=== PATIENT | male | born 1950 | race Caucasian/White ===

== ENCOUNTER 2021-08-24 22:47 | Inpatient (IN) | payer OTHER, MEDICARE ==
[2021-08-24] MEDS: LORazepam 2 MG/ML INJ IV STA ×2 (23:07→23:17)
[2021-08-24] MEDS ORDERED: LORazepam 2 MG/ML INJ IV STA ×2 (23:07→23:17)
[2021-08-24] MEDS ORDERED: MORPHINE SULFATE 4 MG/ML SYRINGE IV STA ×2 (23:09→23:17)
[2021-08-24] MEDS ORDERED: SUCCINYLCHOLINE CHLORIDE VIAL 200 MG/10 ML VIAL IV ONE (23:15)
[2021-08-24] MEDS ORDERED: ETOMIDATE 2 MG/ML 10 ML VIAL ONE (23:15)
[2021-08-24 23:26] LABS: Glucose,Whole Blood 104 mg/dL (75-99)
[2021-08-24] MEDS ORDERED: NITROGLYCERIN SL TABS 0.4 MG TAB SUBLINGUAL PRN (23:28)
[2021-08-24] MEDS ORDERED: HEPARIN SODIUM 1,000 UN/ML (10ML VL) IV PRN (23:29)
[2021-08-24] MEDS ORDERED: ASPIRIN 300 MG SUPP RECTAL STA (23:29)
[2021-08-24] MEDS ORDERED: HEPARIN SOD,PORK IN 0.45% NACL 25,000 UNIT in 0.45% NACL 1 250ML.BAG IV SCH (23:30)
[2021-08-24 23:49] LABS: Albumin 4.2 g/dL (3.5-5.0); Calcium 8.8 mg/dL (8.4-10.2); Potassium 3.4 mmol/L (3.5-5.1); Total Bilirubin 0.7 mg/dL (0.2-1.3); Total Protein 6.7 g/dL (6.3-8.2)
[2021-08-24 23:54] LABS: HCT 46.9 % (39.0-53.0); HGB 15.2 gm/dL (13.0-17.5); MCH 27.7 pg (25.0-35.0); MCHC 32.3 g/dL (31.0-37.0); MCV 85.6 fL (80.0-100.0); Mean Platelet Volume 7.9; Platelet Count 203 k/uL (150-450); RBC 5.48 m/uL (4.30-5.90); RDW 13.2 % (11.5-15.5); WBC 11.6 k/uL (3.8-10.6)
[2021-08-24] MEDS ORDERED: IV FLUID CONTINUATION 1,000 ML IV ONE ×2 (23:55)
[2021-08-24] MEDS ORDERED: LIDOCAINE 1% INJ 10MG/ML (20 ML MDV) SQ ONE (23:55)
[2021-08-25] MEDS ORDERED: NOREPINEPHRINE 4 MG in SODIUM CHLORIDE 0.9% 250 ML IV ONE ×2
--- NOTE | 2021-08-25 00:03 | XR ---
EXAMINATION TYPE: XR chest 1V DATE OF EXAM: 08/24/2021 COMPARISON: Today HISTORY: Tube placement TECHNIQUE: Single view FINDINGS: Heart and mediastinum are normal. Lungs are clear of infiltrate. There is endotracheal tube 4 cm from the matthew. There is nasogastric tube in the stomach. Lungs are clear of consolidation. Th ere is no heart failure. There are no hilar masses. There are chest leads. IMPRESSION: No active cardiopulmonary disease. No change.
--- NOTE | 2021-08-25 00:04 | XR ---
EXAMINATION TYPE: XR chest 1V confirm line [facility] DATE OF EXAM: 08/24/2021 COMPARISON: Today HISTORY: Tube placement TECHNIQUE: FINDINGS: There is oral gastric tube looped in the gastric fundus. The lungs are clear of infiltrate. There is no heart failure. Endotracheal tube is 4.5 cm from the matthew. There are chest leads. IMPRESSION: No active cardiopulmonary disease. No change.
[2021-08-25] MEDS ORDERED: TIROFIBAN BOLUS 12.5MG/250 ML BAG IV ONE ×2 (00:25)
[2021-08-25] MEDS: HEPARIN SODIUM 1,000 UN/ML (10ML VL) IV ONE ×4 (00:25→00:48)
[2021-08-25] MEDS ORDERED: TIROFIBAN 12.5MG-250ML NS 250 ML IV ONE (00:35)
[2021-08-25 00:47] LABS: INR 0.9 (<1.2); Partial Thromboplastin Time 18.5 sec (22.0-30.0); Prothrombin Time 10.1 sec (9.0-12.0)
[2021-08-25] MEDS ORDERED: TICAGRELOR 90 MG TAB ONE (00:52)
[2021-08-25 00:55] LABS: Band Neutrophils % 1 %; Eosinophils # (M) 0.23 k/uL (0-0.7); Monocytes # (M) 0.93 k/uL (0-1.0); Neutrophils % (M) 33 %; Nucleated Red Blood Cells 0 /100 WBC (0-0); Total Cells Counted 100
[2021-08-25] MEDS ORDERED: IOPAMIDOL-370 100ML BTL INJ ONE ×2 (01:07→01:08)
[2021-08-25] MEDS ORDERED: TICAGRELOR 90 MG TAB PO ONE (01:08)
[2021-08-25] MEDS ORDERED: IOPAMIDOL-370 50ML BTL INJ ONE (01:08)
[2021-08-25] MEDS: LORazepam 2 MG/ML INJ IV STA ×2 (01:32)
[2021-08-25 01:34] LABS: Glucose,Whole Blood 117 mg/dL (75-99)
--- NOTE | 2021-08-25 01:37 | ED ---
SOB HPI - General Chief Complaint: Shortness of Breath Stated Complaint: Shortness of Breath Time Seen by Provider: 08/24/21 23:11 Source: patient Mode of arrival: wheelchair Limitations: no limitations, altered mental status - History of Present Illness Initial Comments: this patient is a 71-year-old man who presents to be evaluated for left arm discomfort and shortness of breath. I am taking most of the history from the patient's , as the patient became unresponsive shortly after arrival here and I was not able to obtain any information from him. [facility] He is being treated for h ypothyroidism. 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 This evening he began experiencing some left arm discomfort, and he told his that something was wrong and had they drove to the hospital. When he arrived in triage she also apparently was able to report he was feeling short of breath. He then became unresponsive while giving the triage history. The patient was brought directly to room 7 and I was summoned to the bedside. MD Complaint: shortness of breath -: unknown Radiation: left arm Associated Symptoms: diaphoresis - Related Data Home Medications Medication Instructions Recorded Confirmed Atorvastatin [Lipitor] 10 mg PO DAILY 08/25/21 08/25/21 Levothyroxine Sodium [Synthroid] 75 mcg PO DAILY 08/25/21 08/25/21 Previous Rx's Medication Instructions Recorded Ticagrelor [Brilinta] 90 mg PO BID 30 Days #60 tab 08/26/21 Allergies Allergy/AdvReac Type Severity Reaction Status Date / Time No Known Allergies Allergy Verified 08/24/21 23:39 Review of Systems ROS Statement: Those systems with pertinent positive or pertinent negative responses have been documented in the HPI. ROS Other: All systems not noted in ROS Statement are negative. Limitations: ROS unobtainable due to patients medical condition Respiratory: Reports: dyspnea Past Medical History Past Medical History: Unable to Obtain History of Any Multi-Drug Resistant Organisms: None Reported Past Surgical History: Unable to Obtain Past Psychological History: No Psychological Hx Reported Smoking Status: Unknown if ever smoked Past Alcohol Use History: Unable to Obtain Past Drug Use History: Unable to Obtain General Exam Limitations: no limitations General appearance: obtunded Head exam: Present: atraumatic, normocephalic Eye exam: Present: normal appearance, PERRL, EOMI. Absent: scleral icterus, conjunctival injection ENT exam: Present: normal oropharynx Neck exam: Present: normal inspection. Absent: tenderness Respiratory exam: Present: rhonchi, other (no spontaneous inspiratory effort. Auscultation with bagging reveals a few scattered rhonchi) Cardiovascular Exam: Present: other (no cardiac sounds. No palpable PMI or any pulses) GI/Abdominal exam: Present: soft. Absent: distended, tenderness, guarding exam: Present: normal inspection Extremities exam: Present: normal inspection. Absent: tenderness, normal capillary refill, pedal edema Back exam: Present: normal inspection. Absent: vertebral tenderness Expanded Eye Response: (1) no response Motor Response: (1) no motor response Verbal Response: (1) no verbal response Skin exam: Present: intact, diaphoretic, mottled. Absent: rash Course Vital Signs 08/24/21 08/24/21 08/24/21 22:52 23:12 23:18 Temperature 97.3 F L Pulse Rate 66 109 H 104 H Respiratory 16 14 18 Rate Blood Pressure 190/102 144/102 141/100 O2 Sat by Pulse 99 98 Oximetry 08/24/21 08/24/21 08/24/21 23:24 23:27 23:30 Temperature Pulse Rate 81 78 76 Respiratory 14 14 14 Rate Blood Pressure 95/70 84/66 79/61 O2 Sat by Pulse 98 98 Oximetry Procedures - [place] Protocol (Time Out) Patient Identification (2 identifiers required): Verbal, Arm Band, Name, Birthdate Patient/Legal Gas Generator Operator has Confirmed: Identity, Procedure, Consent Site Marked: Not Applicable - Intubation Sedative: Etomidate Mg Given: 20 Paralytic: Succinylcholine Mg Given: 100 Laryngoscope: Adina Size: 3 ET Tube Size: 8 ET Tube Uncuffed: No Tube Secured Depth (cm): 23 Tube Secured Location: lips Tube Placement Confirmation: visualized tube passing through cords, equal breath sounds bilaterally, no breath sounds over epigastrium, confirmation by capnometry Patient Tolerated Procedure: well Intubation Complications: none Medical Decision Making - Medical Decision Making patient is a 71-year-old man became unresponsive in the triage area and when placed on monitor worker which showed ventricular fibrillation. ACLS protocol started. Chest compressions and bagging performed well defibrillation pads are placed and shock is delivered. Patient remained in V. fib and second shock is administered. The patient had organized complexes, the rate is bradycardic. There are palpable pulses. IV is started, fluids started. The patient did deteriorate into the V. fib, CPR started, epinephrine given, shock is delivered, and resulted in return of organized Rhythm. patient is intubated for airway protection. ECG is obtained which meets STEMI criteria and Forming Machine Tender was activated, I discussed with the subway train driver on-call Dr. Lynn. The patient did start to regain consciousness and is given sedation. - Lab Data Result diagrams: 08/26/21 03:18 08/26/21 03:18 Lab Results 08/24/21 08/24/21 08/24/21 Range/Units 23:06 23:14 23:14 WBC 11.6 H (3.8-10.6) k/uL RBC 5.48 (4.30-5.90) m/uL Hgb 15.2 (13.0-17.5) gm/dL Hct 46.9 (39.0-53.0) % MCV 85.6 (80.0-100.0) fL MCH 27.7 (25.0-35.0) pg MCHC 32.3 (31.0-37.0) g/dL RDW 13.2 (11.5-15.5) % Plt Count 203 (150-450) k/uL MPV 7.9 Neutrophils % (Manual) 33 % Band Neuts % (Manual) 1 % Lymphocytes % (Manual) 56 % Monocytes % (Manual) 8 % Eosinophils % (Manual) 2 % Neutrophils # (Manual) 3.90 (1.3-7.7) k/uL Lymphocytes # (Manual) 6.50 H (1.0-4.8) k/uL Monocytes # (Manual) 0.93 (0-1.0) k/uL Eosinophils # (Manual) 0.23 (0-0.7) k/uL Nucleated RBCs 0 (0-0) /100 WBC Manual Slide Review Performed PT 10.1 (9.0-12.0) sec INR 0.9 (<1.2) APTT 18.5 L (22.0-30.0) sec Sodium (137-145) mmol/L Potassium (3.5-5.1) mmol/L Chloride (98-107) mmol/L Carbon Dioxide (22-30) mmol/L Anion Gap mmol/L BUN (9-20) mg/dL Creatinine (0.66-1.25) mg/dL Est GFR (CKD-EPI)AfAm (>60 ml/min/1.73 sqM) Est GFR (CKD-EPI)NonAf (>60 ml/min/1.73 sqM) Glucose (74-99) mg/dL POC Glucose (mg/dL) 104 H (75-99) mg/dL POC Glu Form Maker Plaster ID Bradley Marrero Calcium (8.4-10.2) mg/dL Total Bilirubin (0.2-1.3) mg/dL AST (17-59) U/L ALT (4-49) U/L Alkaline Phosphatase (38-126) U/L Troponin I (0.000-0.034) ng/mL Total Protein (6.3-8.2) g/dL Albumin (3.5-5.0) g/dL 08/24/21 08/24/21 Range/Units 23:14 23:14 WBC (3.8-10.6) k/uL RBC (4.30-5.90) m/uL Hgb (13.0-17.5) gm/dL Hct (39.0-53.0) % MCV (80.0-100.0) fL MCH (25.0-35.0) pg MCHC (31.0-37.0) g/dL RDW (11.5-15.5) % Plt Count (150-450) k/uL MPV Neutrophils % (Manual) % Band Neuts % (Manual) % Lymphocytes % (Manual) % Monocytes % (Manual) % Eosinophils % (Manual) % Neutrophils # (Manual) (1.3-7.7) k/uL Lymphocytes # (Manual) (1.0-4.8) k/uL Monocytes # (Manual) (0-1.0) k/uL Eosinophils # (Manual) (0-0.7) k/uL Nucleated RBCs (0-0) /100 WBC Manual Slide Review PT (9.0-12.0) sec INR (<1.2) APTT (22.0-30.0) sec Sodium 141 (137-145) mmol/L Potassium 3.4 L (3.5-5.1) mmol/L Chloride 104 (98-107) mmol/L Carbon Dioxide 22 (22-30) mmol/L Anion Gap 15 mmol/L BUN 16 (9-20) mg/dL Creatinine 1.08 (0.66-1.25) mg/dL Est GFR (CKD-EPI)AfAm 81 (>60 ml/min/1.73 sqM) Est GFR (CKD-EPI)NonAf 70 (>60 ml/min/1.73 sqM) Glucose 172 H (74-99) mg/dL POC Glucose (mg/dL) (75-99) mg/dL POC Glu Form Maker Plaster ID Calcium 8.8 (8.4-10.2) mg/dL Total Bilirubin 0.7 (0.2-1.3) mg/dL AST 47 (17-59) U/L ALT 33 (4-49) U/L Alkaline Phosphatase 86 (38-126) U/L Troponin I 0.024 (0.000-0.034) ng/mL Total Protein 6.7 (6.3-8.2) g/dL Albumin 4.2 (3.5-5.0) g/dL Critical Care Time Critical Care Time: Yes (35 minutes) Disposition Clinical Impression: Acute myocardial infarction, STEMI (ST elevation myocardial infarction), Ventricular fibrillation Disposition: ADMITTED IP TO THIS HOSP Condition: Critical
[2021-08-25 01:59] LABS: ABG Base Excess -0.1 mmol/L; ABG HCO3 25 mmol/L (21-25); ABG Oxygen Saturation 99.8 % (94-97); ABG PCO2 46 mmHg (35-45); ABG PH 7.35 (7.35-7.45); ABG PO2 276 mmHg (83-108); ABG TCO2 27 mmol/L (19-24); Allen Test Performed? Yes
[2021-08-25] MEDS ORDERED: POTASSIUM CHLORIDE 20 MEQ in WATER FOR INJECTION 1 100ML.BAG IVPB SCH (03:00)
[2021-08-25] MEDS: NOREPINEPHRINE 4 MG in SODIUM CHLORIDE 0.9% 250 ML IV SCH ×2 (03:00→15:42)
[2021-08-25] MEDS: POTASSIUM CHLORIDE 10 MEQ in WATER FOR INJECTION 1 100ML.BAG IVPB SCH ×2 (03:26→04:13)
[2021-08-25] MEDS: SODIUM CHLORIDE 0.9% 1,000 ML IV SCH ×4 (04:04→23:19)
--- NOTE | 2021-08-25 05:55 | CONS ---
CONSULTATION This is a 71-year-old gentleman who I met in the chemical processing laborer. He came in through the triage through the emergency room complaining of left arm pain on and off from yesterday with a constant pain for about an hour prior to arrival and he collapsed, was found to be in a course of VFib, shocked, resuscitated, had a CPR, intubated and brought to the chemical processing laborer. On talking to the , it appears that he was having left arm and shoulder pain on and off yesterday but more constantly today. He is otherwise a healthy person takes a thyroid supplement and medication for cholesterol, details unavailable. He sees Dr. Fall, but most of his care is at the [facility] in the [place]. He is otherwise. PHYSICAL EXAMINATION: On examination, blood pressure was about 100 systolic. The patient was on a vent and was not responding and he was on a propofol drip. The JVD was evident 1 cm. HEART exam reveals S1, S2 with distant heart sounds. LUNGS: Reveal breath sounds. ABDOMEN is soft. Lower extremities revealed diminished pulses. Central nervous system assessment not performed. EKG revealed sinus mechanism with ST elevation in 1, aVL, V2 through V5, suggestive of an anterolateral CO. IMPRESSION: 1. Acute anterolateral ST-elevation CO with ventricular fibrillation, cardiac arrest and CPR with resuscitation. 2. Hypothyroidism. RECOMMENDATIONS: I recommended prompt cardiac cath and PCI and proceeded with the procedure expeditiously. KEN / XIOMARA: [id number] /
--- NOTE | 2021-08-25 05:55 | CC ---
CARDIAC CATHETERIZATION REPORT Please send a copy of cardiac catheterization report to Dr. Fall. MMJOSE / IJN: [id number] /
[2021-08-25] MEDS: LEVOTHYROXINE 75 MCG TAB PO SCH (06:14)
[2021-08-25 06:17] LABS: Basophils # (A) 0.1 k/uL (0-0.2); Basophils % (A) 1 %; Eosinophils # (A) 0.2 k/uL (0-0.7); Eosinophils % (A) 1 %; HCT 43.3 % (39.0-53.0); Hypochromasia Slight; Lymphocytes # (A) 2.1 k/uL (1.0-4.8); Lymphocytes % (A) 18 %; MCH 28.4 pg (25.0-35.0); MCHC 32.3 g/dL (31.0-37.0); MCV 88.1 fL (80.0-100.0); Mean Platelet Volume 7.8; Monocytes # (A) 0.6 k/uL (0-1.0); Monocytes % (A) 5 %; Neutrophils # (A) 8.5 k/uL (1.3-7.7); Neutrophils % (A) 74 %; Platelet Count 260 k/uL (150-450); RBC 4.92 m/uL (4.30-5.90); RDW 13.7 % (11.5-15.5); WBC 11.5 k/uL (3.8-10.6)
[2021-08-25 06:34] LABS: Calcium 8.6 mg/dL (8.4-10.2); Potassium 4.6 mmol/L (3.5-5.1)
[2021-08-25 07:13] LABS: ABG Base Excess -0.8 mmol/L; ABG HCO3 25 mmol/L (21-25); ABG Oxygen Saturation 98.8 % (94-97); ABG PCO2 43 mmHg (35-45); ABG PH 7.37 (7.35-7.45); ABG PO2 118 mmHg (83-108); ABG TCO2 26 mmol/L (19-24); Allen Test Performed? Yes
--- NOTE | 2021-08-25 07:50 | CC ---
CARDIAC CATHETERIZATION REPORT CARDIAC CATHETERIZATION AND PCI REPORT: PROCEDURES: 1. Left heart catheterization and coronary angiography. 2. PTCA and stenting of a totally occluded mid LAD in the setting of an acute anterior ST-elevation [place] with drug-eluting stent. 3. PTCA and stenting of a high-grade 85% lesion involving the first obtuse marginal branch of a dominant circumflex with a drug-eluting stent. PERFORMED BY: Dr. Yokasta Lynn. Moderate conscious sedation time was 60 minutes. Patient was administered propofol and he was on a vent. His oxygen saturation, EKG were monitored closely. CLINICAL INFORMATION: Mr. Zhu is a 71-year-old gentleman who has his healthcare at the [facility] in [place]. He presented by himself with his to the emergency room complaining of left arm pain for at least on and off for about a day. After arrival, he was talking to the people in the ER and then suddenly he collapsed, was found to be in VFib, resuscitated by 2 shocks and 1 round of CPR and then intubated. EKG revealed ST elevation in lead 1, aVL and V2 through V5. He was advised prompt intervention and I was called. I saw the patient in the laborer yard. I proceeded with a prompt cardiac cath and PCI. PROCEDURE NOTE: Under local anesthesia and strict aseptic precautions, a 6-[place] introducer was placed in the right femoral artery. Using a standard left Angeli guide catheter to cannulate the left coronary artery, I noted that mid LAD was totally occluded. I went ahead and performed intervention of this vessel and then did an intervention of the circumflex vessel and following this, I performed selective coronary angiography of the nondominant RCA and checked LV pressures but did not perform the LV-gram. Following the procedure, the sheath was taken out and Angio-Seal device used to secure hemostasis. I used a Levophed from between 5 and 10 mcg and in the end he had a pressure of about 100-110 systolic on 5 mics of Levophed. He was quite sedated with propofol drip. He was sent to the ICU on 5 mics of Levophed with an excellent angiographic result. The details were discussed with the patient's and prognosis remains guarded. CARDIAC CATHETERIZATION FINDINGS: LEFT MAIN CORONARY ARTERY: Short patent vessel immediately bifurcates into LAD and circumflex. No significant disease. LEFT ANTERIOR DESCENDING CORONARY ARTERY: Calcified vessel, occluded in the mid portion after diagonal branch. The opacified vessel has moderate disease of 30-40 percent throughout. 100% occlusion of mid LAD, which is the culprit lesion. LEFT POSTERIOR CIRCUMFLEX CORONARY ARTERY: Probably a dominant vessel that gives off a large obtuse marginal that runs laterally and this obtuse marginal branch has a 90% stenosis eccentric in nature as it comes off from the main circumflex and then some divides into 2 additional branches that supply a sizable amount of myocardium. A culprit 85% lesion in the first obtuse marginal just as it comes off the main circumflex. The continuation of circumflex also has some disease and distal branches of the circumflex also but divided 2 additional branches and supplies if there is a fair amount of myocardium and distally in the PDA distribution. The PDA distribution. RIGHT CORONARY ARTERY: This is a nondominant vessel with limited amount of myocardium being supplied by it, has minor irregularities but no significant disease. LEFT VENTRICULOGRAM: Was not performed, but left ventricular end-diastolic pressure was 20 mmHg without any gradient across aortic valve. PCI PROCEDURE DETAILS: The patient received a total of 7000 units of heparin and he also received Aggrastat bolus and infusion as per protocol. He received 180 mg of Brilinta through NG tube. I used a standard left Angeli guide catheter and a run-through wire. With this, I crossed the lesion in the LAD and pre-dilated it with a 2.5 caliber NC Trek balloon and then deployed a 2.5 caliber 23 mm long Xience stent. This was postdilated with a 3.25 caliber NC Trek balloon throughout its length. Excellent angiographic result was achieved. The same wire was used to cross the lesion in the circumflex. Without predilatation, a 3.5 caliber 18 mm long Xience stent was deployed. The proximal half of the stent was not open fully. I used a 4.0 caliber 12 mm NC Trek balloon and postdilated it. Excellent angiographic result was achieved without complication. The groove branch perfusion was well preserved without any issue. Excellent angiographic result of circumflex was achieved. PCI of both vessels were performed. The culprit vessel was mid LAD with a drug-eluting stent and also the non culprit circumflex was also addressed with excellent result. Details were discussed with the patient's . He was sent to the ICU on 5 mics of Levophed. MMODL / IJN: [id number] /
--- NOTE | 2021-08-25 07:58 | XR ---
EXAMINATION TYPE: XR chest 1V portable DATE OF EXAM: 08/25/2021 Comparison: 08/24/2021 Clinical History: 71-year-old male Tube placement Findings: ET tube is satisfactory. NG tube sidehole at the level of the GE junction. Consider further advanceme nt by approximately 4 cm into the stomach. Heart is mildly enlarged. Mild interstitial prominence is unchanged. Patchy retrocardiac opacity is more defined. No pleural effusion. Impression: 1. Mild cardiomegaly and mild interstitial changes. Interstitial changes may be chronic or could refl ect mild pulmonary vascular congestion. 2. Patchy retrocardiac atelectasis versus infiltrate now better seen. 3. Advance the NG tube by 4 cm so that the side hole enters the stomach.
[2021-08-25] MEDS: ATORVASTATIN 80 MG TAB PO SCH (09:06)
[2021-08-25] MEDS: CHLORHEXIDINE GLUCONATE 15 ML CUP MUCOUS MEM SCH ×2 (09:06→20:53)
[2021-08-25] MEDS: ASPIRIN 81 MG PO SCH (09:06)
[2021-08-25] MEDS: TICAGRELOR 90 MG TAB PO SCH ×2 (09:07→20:53)
[2021-08-25] MEDS: PANTOPRAZOLE 40 MG/10 ML VIAL IVP SCH (10:59)
[2021-08-25] MEDS ORDERED: ATORVASTATIN 10 MG TAB PO SCH (11:00)
[2021-08-25] MEDS ORDERED: LEVOTHYROXINE 75 MCG TAB PO SCH (11:00)
--- NOTE | 2021-08-25 12:40 | ECHOF ---
Referral Reason:recent stemi MEASUREMENTS -------- HEIGHT: 185.4 cm WEIGHT: 107.5 kg BP: 109/80 RVIDd: 2.6 cm (< 3.3) IVSd: 1.1 cm (0.6 - 1.1) LVIDd: 5.1 cm (3.9 - 5.3) LVPWd: 1.0 cm (0.6 - 1.1) IVSs: 1.6 cm LVIDs: 3.8 cm LVPWs: 1.5 cm LA Diam: 3.0 cm (2.7 - 3.8) Ao Diam: 3.7 cm (2.0 - 3.7) AV Cusp: 2.3 cm (1.5 - 2.6) MV EXCURSION: 14.230 mm (> 18.000) MV EF SLOPE: 64 mm/s (70 - 150) EPSS: 1.1 cm MV E Veto: 0.58 m/s MV DecT: 223 ms MV A Veto: 0.98 m/s MV E/A Ratio: 0.59 FINDINGS -------- Resting bradycardia (HR<60bpm). This was a technically difficult study with suboptimal apical views. The left ventricular size is normal. Left ventricular wall thickness is normal. Overall left vent ricular systolic function is severely impaired with, an EF between 20 - 25 %. Wall motion may be re lated to Takotsubo's cardiomyopathy, clinical correlation recommended. Mid anterior LV wall motion is hypokinetic. Mid lateral LV wall motion is hypokinetic. Mid posterior LV wall motion is hyp okinetic. Mid inferior LV wall motion is hypokinetic. Apical anterior LV wall motion is hypokin etic. Apical lateral LV wall motion is hypokinetic. Apical inferior LV wall motion is hypokinet ic. Apical septum LV wall motion is hypokinetic. The right ventricle is normal in size. The left atrium is normal in size. The right atrium is normal in size. 5 ml of Lumason was utilized for enhancement of images. Interatrial and interventricular septum intact. The aortic valve is trileaflet, and appears structurally normal. No aortic stenosis or regurgitation. Mild mitral annular calcification present. The tricuspid valve appears structurally normal. Unable to estimate RVSP due to inadequate TR jet s pectral doppler profile. Trace/mild (physiologic) pulmonic regurgitation. The aortic root size is normal. IVC Not well visulized. There is no pericardial effusion. CONCLUSIONS -------- 1. The left ventricular size is normal. 2. Left ventricular wall thickness is normal. 3. Overall left ventricular systolic function is severely impaired with, an EF between 20 - 25 %. 4. Wall motion may be related to Takotsubo's cardiomyopathy, clinical correlation recommended. 5. Mid anterior LV wall motion is hypokinetic. 6. Mid lateral LV wall motion is hypokinetic. 7. Mid posterior LV wall motion is hypokinetic. 8. Mid inferior LV wall motion is hypokinetic. 9. Apical anterior LV wall motion is hypokinetic. 10. Apical lateral LV wall motion is hypokinetic. 11. Apical inferior LV wall motion is hypokinetic. 12. Apical septum LV wall motion is hypokinetic. 13. 5 ml of Lumason was utilized for enhancement of images. 14. The aortic valve is trileaflet, and appears structurally normal. No aortic stenosis or regurgitat ion. 15. Mild mitral annular calcification present. 16. Trace/mild (physiologic) pulmonic regurgitation. 17. There is no pericardial effusion. GEOLOGICAL E LOGGER: Iesha Graham RDCS
--- NOTE | 2021-08-25 13:15 | P.CNPUL ---
History of Present Illness Consult date: 08/25/21 Reason for consult: chest pain Chief complaint: Acute ST elevated myocardial infarction, and cardiac arrest History of present illness: 71-year-old white male patient with past medical history of hypothyroidism, and hyperlipidemia, who came into the emergency department on 08/24/2021 for evaluation of left arm discomfort and shortness of breath. Patient's follows with the [place] system for his medical care. 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 In the evening he began experiencing some left arm discomfort, and he had told his that something was wrong and she had drove him to the hospital for evaluation. As the patient was being evaluated in the emergency department patient became unresponsive and had a collapsed. He was found to be in a V. fib, he was defibrillated, resuscitated, he required CPR, he was emergently intubated and placed on mechanical ventilator and was taken to the [facility]. His EKG revealed sinus mechanism with ST elevation in 1, aVL, V2 through V5, suggestive of anterolateral myocardial infarction, in the [facility] patient underwent PTCA and stenting of a totally occluded mid LAD in the setting of an acute anterior ST elevated myocardial infarction with drug-eluting stent, and PTCA and stenting of high-grade first obtuse marginal stenosis with a drug-eluting stent by Dr. SHAKIRA Lynn, patient was then returned to the intensive care unit, and he remains on mechanical ventilator, on assist-control mode with a rate of 14, tidal volume is 500, FiO2 of 50% and PEEP of 5, this morning's blood gas shows pO2 of 118, pCO2 43, pH of 7.37, this was done and FiO2 of 60%, his current infusions include 0.9 normal saline at a rate of 75 ML per hour, he is on Tirofiban infusion at 0.15 mics/per kilo per hour. Patient will be started on Brillinta, aspirin, high intensity dose Lipitor. Currently hemodynamically stable, not requiring any vasopressor support, echocardiogram is pending, FiO2 has been dropped down to 50%. His chest x-ray has been reviewed showing left base atelectasis. Urine output is in the order of 20-25 ML per hour. Review of Systems All systems: negative Constitutional: Denies chills, Denies fever Eyes: denies blurred vision, denies pain Ears, nose, mouth and throat: Denies headache, Denies sore throat Cardiovascular: Reports chest pain, Reports shortness of breath Respiratory: Reports cough Gastrointestinal: Denies abdominal pain, Denies diarrhea, Denies nausea, Denies vomiting Musculoskeletal: Denies myalgias Integumentary: Denies pruritus, Denies rash Neurological: Denies numbness, Denies weakness Psychiatric: Denies anxiety, Denies depression Endocrine: Denies fatigue, Denies weight change Past Medical History Past Medical History: Coronary Artery Disease (CAD), Myocardial Infarction ([place]), Thyroid Disorder Last Myocardial Infarction Date:: 08/24/2021 History of Any Multi-Drug Resistant Organisms: None Reported Past Surgical History: Heart Catheterization With Stent, Hernia Repair Past Anesthesia/Blood Transfusion Reactions: No Reported Reaction Date of Last Stent Placement:: 08/25/2021 Past Psychological History: No Psychological Hx Reported Smoking Status: Never smoker Past Alcohol Use History: None Reported Past Drug Use History: None Reported Medications and Allergies Home Medications Medication Instructions Recorded Confirmed Type Atorvastatin [Lipitor] 10 mg PO DAILY 08/25/21 08/25/21 History Levothyroxine Sodium [Synthroid] 75 mcg PO DAILY 08/25/21 08/25/21 History Allergies Allergy/AdvReac Type Severity Reaction Status Date / Time No Known Allergies Allergy Verified 08/24/21 23:39 Physical Exam Vitals: Vital Signs Temp Pulse Resp BP Pulse Ox 08/25/21 11:00 59 L 15 110/77 98 08/25/21 10:30 56 L 18 95/70 97 08/25/21 10:00 55 L 18 97/71 96 08/25/21 09:30 56 L 19 101/70 98 08/25/21 09:00 56 L 17 101/71 98 08/25/21 08:30 54 L 12 101/66 97 08/25/21 08:00 97.0 F L 57 L 15 100/68 98 08/25/21 07:30 55 L 16 94/69 08/25/21 07:00 56 L 14 109/80 100 08/25/21 06:45 59 L 15 101/74 08/25/21 06:30 56 L 16 107/74 08/25/21 06:15 55 L 14 105/75 08/25/21 06:00 55 L 16 99/72 99 08/25/21 05:45 55 L 15 98/71 08/25/21 05:30 54 L 14 104/73 98 08/25/21 05:15 54 L 15 103/77 08/25/21 05:00 56 L 17 104/76 08/25/21 04:45 55 L 17 99/71 98 08/25/21 04:30 55 L 15 94/72 08/25/21 04:15 55 L 17 94/70 98 08/25/21 04:00 97.7 F 54 L 16 83/62 97 08/25/21 03:45 53 L 16 95/65 08/25/21 03:30 61 13 91/66 99 08/25/21 03:15 60 14 92/63 99 08/25/21 03:00 60 14 95/67 08/25/21 02:45 62 14 95/63 99 08/25/21 02:30 61 14 124/85 98 08/25/21 02:15 62 16 98/69 97 08/25/21 02:00 61 16 99/66 97 08/25/21 01:50 97.7 F 98 08/25/21 01:45 97 F L 63 15 118/88 98 08/24/21 23:36 73 14 88/61 96 08/24/21 23:30 76 14 79/61 08/24/21 23:27 78 14 84/66 98 08/24/21 23:24 81 14 95/70 98 08/24/21 23:18 104 H 18 141/100 98 08/24/21 23:12 109 H 14 144/102 08/24/21 22:52 97.3 F L 66 16 190/102 99 Intake and Output 08/24/21 08/25/21 08/25/21 22:59 06:59 14:59 Intake Total 701.190 677.161 Output Total 175 120 Balance 526.190 557.161 Intake: IV 635 400 .9 375 400 Intake, IV Titration 66.190 227.161 Amount Norepinephrine 4 mg In 127.323 Sodium Chloride 0.9% 250 ml @ 0.05 MCG/KG/MIN 20. 536 mls/hr IV .[id number] [facility] Rx#:[id number] propofoL 1,000 mg In 66.190 99.838 Empty Bag 1 bag @ Titrate IV .Q0M [facility] Rx#: [id number] Other 50 Output: Urine 175 120 Other: Voiding Method Indwelling Catheter Indwelling Catheter Weight 102.058 kg 107.8 kg GENERAL EXAM: Sedate, intubated, 71-year-old white male, on assist control mode of ventilation with FiO2 of 50% and PEEP of 5 comfortable in no apparent distress. HEAD: Normocephalic/atraumatic. EYES: Normal reaction of pupils, equal size. Conjunctiva pink, sclera white. NOSE: Clear with pink turbinates. THROAT: No erythema or exudates. NECK: No masses, no JVD, no thyroid enlargement, no adenopathy. CHEST: No chest wall deformity. Symmetrical expansion. LUNGS: Equal air entry with no crackles, wheeze, rhonchi or dullness. CVS: Regular rate and rhythm, normal S1 and S2, no gallops, no murmurs, no rubs ABDOMEN: Soft, nontender. No hepatosplenomegaly, normal bowel sounds, no guarding or rigidity. EXTREMITIES: No clubbing, no edema, no cyanosis, 2+ pulses and upper and lower extremities. MUSCULOSKELETAL: Muscle strength and tone normal. SPINE: No scoliosis or deformity SKIN: No rashes CENTRAL NERVOUS SYSTEM: Sedated and intubated No focal deficits, tone is normal in all 4 extremities. Results - Laboratory Findings CBC and BMP: 08/25/21 05:59 08/25/21 05:59 ABG ABG pH 7.37 (7.35-7.45) 08/25/21 07:06 ABG pCO2 43 mmHg (35-45) 08/25/21 07:06 ABG pO2 118 mmHg (83-108) H 08/25/21 07:06 ABG O2 Saturation 98.8 % (94-97) H 08/25/21 07:06 PT/INR, D-dimer PT 10.1 sec (9.0-12.0) 08/24/21 23:14 INR 0.9 (<1.2) 08/24/21 23:14 Abnormal lab findings: Abnormal Labs 08/24/21 08/24/21 08/24/21 23:06 23:14 23:14 WBC 11.6 H Neutrophils # Lymphocytes # (Manual) 6.50 H APTT 18.5 L ABG pCO2 ABG pO2 ABG Total CO2 ABG O2 Saturation Potassium Glucose POC Glucose (mg/dL) 104 H Troponin I 08/24/21 08/25/21 08/25/21 23:14 01:31 01:48 WBC Neutrophils # Lymphocytes # (Manual) APTT ABG pCO2 46 H ABG pO2 276 H ABG Total CO2 27 H ABG O2 Saturation 99.8 H Potassium 3.4 L Glucose 172 H POC Glucose (mg/dL) 117 H Troponin I 08/25/21 08/25/21 08/25/21 05:59 05:59 05:59 WBC 11.5 H Neutrophils # 8.5 H Lymphocytes # (Manual) APTT ABG pCO2 ABG pO2 ABG Total CO2 ABG O2 Saturation Potassium Glucose 113 H POC Glucose (mg/dL) Troponin I 10.600 H* 08/25/21 08/25/21 07:06 09:50 WBC Neutrophils # Lymphocytes # (Manual) APTT ABG pCO2 ABG pO2 118 H ABG Total CO2 26 H ABG O2 Saturation 98.8 H Potassium Glucose POC Glucose (mg/dL) Troponin I 12.600 H* - Diagnostic Findings Chest x-ray: report reviewed, image reviewed Additional studies: EKG reviewed, echocardiogram results have been reviewed Assessment and Plan Plan: Assessment: #1. Acute witnessed cardiac arrest in the emergency department, a V. fib arrest, requiring defibrillation, and CPR and intubation and mechanical ALLERGY #2. Acute ST elevated myocardial infarction, with EKG showing findings suggestive of anterolateral myocardial infarction, patient was taken to the CVL and underwent PTCA and stenting of the mid LAD, and OM 1 #3. Coronary artery disease #4. Acute ischemic cardiomyopathy, and EF 20-25% as evidenced on echocardiogram from 08/25/2021 #5. Hypothyroidism #6. Nonsmoker #7. Acute hypoxic respiratory failure related to acute cardiac arrest, requiring intubation and mechanical ventilation Plan: Continue same vent settings, FiO2 is currently down to 50% Neurologically patient responds to voice, and follow simple command We'll continue on light sedation with Diprivan Chest x-ray has been reviewed, EKG echocardiogram reviewed Continue antiplatelet agents, high intensity Lipitor per cardiology Increase IV fluids to 100 ML per hour We'll hold off on starting tube feedings today in anticipation of sedation holiday and weaning and extubation tomorrow Continue close hemodynamic monitoring I performed a history & physical examination of the patient and discussed their management with my nurse practitioner, Jo Ann Hay. I reviewed the nurse practitioner's note and agree with the documented findings and plan of care. Lung sounds are positive for diminished breath sounds throughout the lung culver. The findings and the impression was discussed with the patient. I attest to the documentation by the nurse practitioner. Time with Patient: Greater than 30
--- NOTE | 2021-08-25 19:37 | P.PN ---
Subjective Patient evaluated in the morning He presented with an acute myocardial infarction and had ventricular fibrillation arrest in the ER He was expeditiously resuscitated The twelve-lead EKG about 53 minutes later continued to show ST elevation in the anterior leads He underwent coronary angiography An mid LAD occlusion was found status post stenting He was intubated at that time He remains intubated this morning He is on norepinephrine for pressure support Breath sounds are equal bilaterally Heart sounds are soft no murmurs Labs are reviewed initial troponin is normal then subsequently 10.6 then 12.6 and then 15.1 Blood pressure 130/76. His mercury Pulse rate in the 60s No JVD The 2-D echo was done and I reviewed the films and the images Severe LV dysfunction ejection fraction less than 20% Only the base of the LV is jose miguel Plan Continue aspirin and continue atorvastatin Continue ICU support and once the patient is off norepinephrine and is able to tolerate beta blockers we'll start beta blockers Extubation when possible Prognosis guarded at this point However he was successfully stented in an expeditious manner and hopefully the results of this will ultimately show Objective - Vital Signs Vital signs: Vital Signs Temp 99.7 F H 08/25/21 16:00 Pulse 71 08/25/21 19:00 Resp 26 H 08/25/21 19:00 BP 115/73 08/25/21 19:00 Pulse Ox 93 L 08/25/21 18:00 Intake & Output 08/25/21 08/25/21 08/26/21 06:59 18:59 06:59 Intake Total 202.039 3062.020 100 Output Total 175 665 25 Balance 526.190 771.020 75 Weight 107.8 kg 107.8 kg Intake: IV 635 1100 100 .9 375 1100 100 Intake, IV Titration 66.190 286.020 Amount Norepinephrine 4 mg In 127.323 Sodium Chloride 0.9% 250 ml @ 0.05 MCG/KG/MIN 20. 536 mls/hr IV .[id number] [facility] Rx#:[id number] propofoL 1,000 mg In 66.190 158.697 Empty Bag 1 bag @ Titrate IV .Q0M [facility] Rx#: [id number] Other 50 Output: Gastric Drainage 300 Urine 175 365 25 Other: Voiding Method Indwelling Catheter Indwelling Catheter - Labs CBC & Chem 7: 08/25/21 05:59 10/04/21 05:59 Labs: Abnormal Lab Results - Last 24 Hours (Table) 08/24/21 08/24/21 08/24/21 Range/Units 23:06 23:14 23:14 WBC 11.6 H (3.8-10.6) k/uL Neutrophils # (1.3-7.7) k/uL Lymphocytes # (Manual) 6.50 H (1.0-4.8) k/uL APTT 18.5 L (22.0-30.0) sec ABG pCO2 (35-45) mmHg ABG pO2 (83-108) mmHg ABG Total CO2 (19-24) mmol/L ABG O2 Saturation (94-97) % Potassium (3.5-5.1) mmol/L Glucose (74-99) mg/dL POC Glucose (mg/dL) 104 H (75-99) mg/dL Troponin I (0.000-0.034) ng/mL 08/24/21 08/25/21 08/25/21 Range/Units 23:14 01:31 01:48 WBC (3.8-10.6) k/uL Neutrophils # (1.3-7.7) k/uL Lymphocytes # (Manual) (1.0-4.8) k/uL APTT (22.0-30.0) sec ABG pCO2 46 H (35-45) mmHg ABG pO2 276 H (83-108) mmHg ABG Total CO2 27 H (19-24) mmol/L ABG O2 Saturation 99.8 H (94-97) % Potassium 3.4 L (3.5-5.1) mmol/L Glucose 172 H (74-99) mg/dL POC Glucose (mg/dL) 117 H (75-99) mg/dL Troponin I (0.000-0.034) ng/mL 08/25/21 08/25/21 08/25/21 Range/Units 05:59 05:59 05:59 WBC 11.5 H (3.8-10.6) k/uL Neutrophils # 8.5 H (1.3-7.7) k/uL Lymphocytes # (Manual) (1.0-4.8) k/uL APTT (22.0-30.0) sec ABG pCO2 (35-45) mmHg ABG pO2 (83-108) mmHg ABG Total CO2 (19-24) mmol/L ABG O2 Saturation (94-97) % Potassium (3.5-5.1) mmol/L Glucose 113 H (74-99) mg/dL POC Glucose (mg/dL) (75-99) mg/dL Troponin I 10.600 H* (0.000-0.034) ng/mL 08/25/21 08/25/21 08/25/21 Range/Units 07:06 09:50 15:02 WBC (3.8-10.6) k/uL Neutrophils # (1.3-7.7) k/uL Lymphocytes # (Manual) (1.0-4.8) k/uL APTT (22.0-30.0) sec ABG pCO2 (35-45) mmHg ABG pO2 118 H (83-108) mmHg ABG Total CO2 26 H (19-24) mmol/L ABG O2 Saturation 98.8 H (94-97) % Potassium (3.5-5.1) mmol/L Glucose (74-99) mg/dL POC Glucose (mg/dL) (75-99) mg/dL Troponin I 12.600 H* 15.100 H* (0.000-0.034) ng/mL
[2021-08-26 03:49] LABS: Basophils % (A) 0 %; Eosinophils # (A) 0.1 k/uL (0-0.7); Eosinophils % (A) 1 %; HGB 12.6 gm/dL (13.0-17.5); Lymphocytes # (A) 0.7 k/uL (1.0-4.8); Lymphocytes % (A) 4 %; MCH 28.1 pg (25.0-35.0); MCHC 33.2 g/dL (31.0-37.0); MCV 84.5 fL (80.0-100.0); Mean Platelet Volume 7.7; Monocytes # (A) 0.6 k/uL (0-1.0); Monocytes % (A) 4 %; Neutrophils # (A) 14.1 k/uL (1.3-7.7); Neutrophils % (A) 91 %; Platelet Count 136 k/uL (150-450); RDW 13.3 % (11.5-15.5); WBC 15.5 k/uL (3.8-10.6)
[2021-08-26 04:01] LABS: African American GFR (CKD) >90 (>60 ml/min/1.73 sqM); Anion Gap 6 mmol/L; Blood Urea Nitrogen 17 mg/dL (9-20); Carbon Dioxide 22 mmol/L (22-30); Chloride 107 mmol/L (98-107); Glucose 122 mg/dL (74-99); Non-African American GFR(CKD) 89 (>60 ml/min/1.73 sqM); Potassium 3.6 mmol/L (3.5-5.1); Sodium 135 mmol/L (137-145)
[2021-08-26] MEDS: NOREPINEPHRINE 4 MG in SODIUM CHLORIDE 0.9% 250 ML IV SCH (04:32)
[2021-08-26 04:39] LABS: ABG Base Excess 0.2 mmol/L; ABG HCO3 24 mmol/L (21-25); ABG Oxygen Saturation 97.9 % (94-97); ABG PCO2 33 mmHg (35-45); ABG PH 7.47 (7.35-7.45); ABG PO2 87 mmHg (83-108); ABG TCO2 25 mmol/L (19-24); Allen Test Performed? Yes
[2021-08-26] MEDS ORDERED: Potassium Replacement Protocol 1 EACH MISC MISCELLANE PRN (05:34)
[2021-08-26] MEDS ORDERED: POTASSIUM BICARB-CITRIC ACID 25 MEQ TABLET.EFF PO SCH (06:00)
--- NOTE | 2021-08-26 06:53 | XR ---
EXAMINATION TYPE: XR chest 1V portable DATE OF EXAM: 08/26/2021 CLINICAL HISTORY: Difficulty breathing progress study. TECHNIQUE: Single AP portable semiupright view of the chest is obtained. COMPARISON: Chest x-ray from one and 2 days earlier. FINDINGS: Stable endotracheal and orogastric tubes. Persistent retrocardiac opacity. Developing righ t basilar opacity. Cardiac silhouette size stable and mildly enlarged. Osseous structures are intact. IMPRESSION: Mild cardiomegaly with retrocardiac acute infiltrate and developing patchy right basilar acute atelectasis and/or infiltrate noted.
[2021-08-26] MEDS: LEVOTHYROXINE 75 MCG TAB PO SCH (07:02)
[2021-08-26] MEDS ORDERED: FUROSEMIDE 10 MG/ML 4 ML VIAL IV STA (08:23)
[2021-08-26] MEDS: ATORVASTATIN 80 MG TAB PO SCH (08:29)
[2021-08-26] MEDS: CHLORHEXIDINE GLUCONATE 15 ML CUP MUCOUS MEM SCH (08:29)
[2021-08-26] MEDS: TICAGRELOR 90 MG TAB PO SCH ×2 (08:29→20:06)
[2021-08-26] MEDS: ASPIRIN 81 MG PO SCH (08:29)
[2021-08-26] MEDS: PANTOPRAZOLE 40 MG/10 ML VIAL IVP SCH (08:29)
[2021-08-26] MEDS: SODIUM CHLORIDE 0.9% 1,000 ML IV SCH (10:00)
--- NOTE | 2021-08-26 12:31 | P.PN ---
Subjective this is a 71-year-old male with a past medical history of dyslipidemia, hypothyroidism. He does not follow with a [facility] operator. Patient presented to the emergency department 08/25/2021 with left arm pain on and off, he collapsed and was found to be in Vfib, shocked, resuscitated, intubated. EKG revealed sinus mechanism with ST elevation in lead 1, aVL, V2 through V5 suggestive of an anterolateral CA. HIs troponin peaked at 15.1. Patient was taken to the earth[facility] labourer, cardiac catheterization was performed by Dr. Lynn which revealed occluded,100% occlusion of the mid LAD, LAD with moderate disease throughout, obtuse marginal branch 90% stenosis, 85% lesion in the first. obtuse marginal comes off the main circumflex. patient underwent successful stenting of the mid LAD and first obtuse marginal branch of circumflex. Echocardiogram revealed EF of 2025 percent, apical wall motion hypokinetic and mid LV wall motional hypokinetic. Patient seen and examined at bedside, was extubated around 9:00am. He is alert and oriented. He denies any chest pain, shortness of breath, lightheadedness, dizziness. He is tired. Levo has been weaned off. blood pressure 136/77, heart rate 84 patient has been having low-grade fevers overnight, he is on 4L nasal cannula. chest x-ray revealed mild cardiomegaly with retrocardiac acute infiltrate and popping patchy right basilar Atelectasis/infiltrate noted. patient is currently maintained on aspirin 81 mg daily, atorvastatin 80 mg daily, Brilinta 90 mg twice a day. laboratory data reviewed WBC 15.5, hemoglobin 12.6, platelets 136, sodium 135, potassium 3.6, BUN 17, serum creatinine 0.8. GENERAL: In no acute distress. NECK: Supple without JVD or thyromegaly. LUNGS: Breath sounds diminished to auscultation bilaterally. Respiration equal and unlabored. HEART: Regular rate and rhythm Systolic murmur, No rubs or gallops. S1 and S2 heard. EXTREMITIES: Normal range of motion, no edema. No clubbing or cyanosis. Peripheral pulses intact. ASSESSMENT: STEMI Ischemic cardiomyopathy Hypothyroidism Acute hypoxic respiratory failure requiring intubation and mechanical ventilation extubated 08/26 Dyslipidemia Fever Leukocytosis PLAN: -Start carvedilol 25mg BID and spironolactone 25mg BID -Most likely start ACEI tomorrow -Continue dual antiplatelet therapy with aspirin and Brilinta -Case management consulted, Brilinta is not covered by patient's insurance, he is able to get free month of Brilinta -Further recommendations based on clinical course Objective - Vital Signs Vital signs: Vital Signs Temp 101.3 F H 08/26/21 12:00 Pulse 86 08/26/21 12:00 Resp 12 08/26/21 12:00 BP 149/78 08/26/21 12:00 Pulse Ox 93 L 08/26/21 12:00 Intake & Output 08/25/21 08/26/21 08/26/21 18:59 06:59 18:59 Intake Total 8541.906 3296.822 341.302 Output Total 795 351 7423 Balance 832.573 3377.822 -833.698 Weight 107.8 kg 111 kg Intake: IV 1100 1200 280 .9 1100 1200 280 Intake, IV Titration 286.020 313.822 31.302 Amount Norepinephrine 4 mg In 127.323 Sodium Chloride 0.9% 250 ml @ 0.05 MCG/KG/MIN 20. 536 mls/hr IV .[id number] [facility] Rx#:[id number] propofoL 1,000 mg In 158.697 313.822 31.302 Empty Bag 1 bag @ Titrate IV .Q0M [facility] Rx#: [id number] Other 50 30 Output: Gastric Drainage 300 Urine 793 516 3107 Other: Voiding Method Indwelling Catheter Indwelling Catheter Indwelling Catheter - Labs CBC & Chem 7: 08/26/21 03:18 08/26/21 03:18 Labs: Abnormal Lab Results - Last 24 Hours (Table) 08/25/21 08/26/21 08/26/21 Range/Units 15:02 03:18 03:18 WBC 15.5 H (3.8-10.6) k/uL Hgb 12.6 L (13.0-17.5) gm/dL Hct 38.0 L (39.0-53.0) % Plt Count 136 L (150-450) k/uL Neutrophils # 14.1 H (1.3-7.7) k/uL Lymphocytes # 0.7 L (1.0-4.8) k/uL ABG pH (7.35-7.45) ABG pCO2 (35-45) mmHg ABG Total CO2 (19-24) mmol/L ABG O2 Saturation (94-97) % Sodium 135 L (137-145) mmol/L Glucose 122 H (74-99) mg/dL Calcium 8.0 L (8.4-10.2) mg/dL Troponin I 15.100 H* (0.000-0.034) ng/mL 08/26/21 Range/Units 04:28 WBC (3.8-10.6) k/uL Hgb (13.0-17.5) gm/dL Hct (39.0-53.0) % Plt Count (150-450) k/uL Neutrophils # (1.3-7.7) k/uL Lymphocytes # (1.0-4.8) k/uL ABG pH 7.47 H (7.35-7.45) ABG pCO2 33 L (35-45) mmHg ABG Total CO2 25 H (19-24) mmol/L ABG O2 Saturation 97.9 H (94-97) % Sodium (137-145) mmol/L Glucose (74-99) mg/dL Calcium (8.4-10.2) mg/dL Troponin I (0.000-0.034) ng/mL Microbiology - Last 24 Hours (Table) 08/25/21 20:15 Gram Stain - Preliminary Sputum Sputum Culture - Preliminary
--- NOTE | 2021-08-26 13:05 | P.PN ---
Subjective Progress Note Date: 08/26/21 Principal diagnosis: Acute hypoxic referral to failure secondary to acute ST elevation myocardial infarction and cardiac arrest. 71-year-old white male patient with past medical history of hypothyroidism, and hyperlipidemia, who came into the emergency department on 08/24/2021 for evaluation of left arm discomfort and shortness of breath. Patient's follows with the [place] [facility] for his medical care. 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 In the evening he began experiencing some left arm discomfort, and he had told his that something was wrong and she had drove him to the hospital for evaluation. As the patient was being evaluated in the emergency department patient became unresponsive and had a collapsed. He was found to be in a V. fib, he was defibrillated, resuscitated, he required CPR, he was emergently intubated and placed on mechanical ventilator and was taken to the [facility] [employer]. His EKG revealed sinus mechanism with ST elevation in 1, aVL, V2 through V5, suggestive of anterolateral myocardial infarction, in the [employer] [employer] patient underwent PTCA and stenting of a totally occluded mid LAD in the setting of an acute anterior ST elevated myocardial infarction with drug-eluting stent, and PTCA and stenting of high-grade first obtuse marginal stenosis with a drug-eluting stent by Dr. SHAKIRA Lynn, patient was then returned to the intensive care unit, and he remains on mechanical ventilator, on assist-control mode with a rate of 14, tidal volume is 500, FiO2 of 50% and PEEP of 5, this morning's blood gas shows pO2 of 118, pCO2 43, pH of 7.37, this was done and FiO2 of 60%, his current infusions include 0.9 normal saline at a rate of 75 ML per hour, he is on Tirofiban infusion at 0.15 mics/per kilo per hour. Patient will be started on Brillinta, aspirin, high intensity dose Lipitor. Currently hemodynamically stable, not requiring any vasopressor support, echocardiogram is pending, FiO2 has been dropped down to 50%. His chest x-ray has been reviewed showing left base atelectasis. Urine output is in the order of 20-25 ML per hour. Reevaluated today on 08/26/2021, patient remains in the ICU, intubated and mechanically ventilated. He is on assist control rate of 14, volume 500 FiO2 50% and PEEP of 5 ABG showed a pO2 of 87 pCO2 of 33 pH of 7.47. Patient is now on IV fluid at 100 mL/h and I cut it down to KVO propofol at 30 mcg/kg/m, he was briefly on norepinephrine last night, today it is off. Chest x-ray showed cardiomegaly, and retrocardiac atelectasis, doubt infiltrate. Echocardiogram showed severe LV dysfunction with ejection fraction of 20-25%. Respiratory see count today is 15.5 hemoglobin is 12.6. Left lites are normal. Renal profile is normal. Troponin is 15.1. After evaluating the patient this morning, I recommended that the patient gets awakened, and will discontinue propofol, and we will likely consider weaning and possibly extubating the patient sometime today. Objective - Vital Signs Vital signs: Vital Signs Temp 101.3 F H 08/26/21 12:00 Pulse 86 08/26/21 12:00 Resp 12 08/26/21 12:00 BP 149/78 08/26/21 12:00 Pulse Ox 93 L 08/26/21 12:00 Intake & Output 08/25/21 08/26/21 08/26/21 18:59 06:59 18:59 Intake Total 6100.553 1833.822 341.302 Output Total 724 138 2874 Balance 812.383 1683.822 -833.698 Weight 107.8 kg 111 kg Intake: IV 1100 1200 280 .9 1100 1200 280 Intake, IV Titration 286.020 313.822 31.302 Amount Norepinephrine 4 mg In 127.323 Sodium Chloride 0.9% 250 ml @ 0.05 MCG/KG/MIN 20. 536 mls/hr IV .[id number] [facility] Rx#:[id number] propofoL 1,000 mg In 158.697 313.822 31.302 Empty Bag 1 bag @ Titrate IV .Q0M [facility] Rx#: [id number] Other 50 30 Output: Gastric Drainage 300 Urine 161 841 7182 Other: Voiding Method Indwelling Catheter Indwelling Catheter Indwelling Catheter - Exam GENERAL EXAM: Revealed a 71-year-old white male intubated and mechanically ventilated, on propofol, HEAD: Normocephalic/atraumatic. Claudette, EOMI, nonicteric, no neck masses, no JVD, moist mucous membranes, endotracheal tube and orogastric tube are intact. CHEST: No chest wall deformity. Symmetrical expansion. LUNGS: Good breath sound bilaterally no crackles or rhonchi or wheezes. CVS: Stent S1 and S2, no S3 gallop. ABDOMEN: Nontender no megaly no rebound no guarding. EXTREMITIES: No clubbing, no edema, no cyanosis, 2+ pulses and upper and lower extremities. SKIN: No rashes CENTRAL NERVOUS SYSTEM: Sedated and intubated, noted to be quite unarousable after the propofol was discontinued. And he was able to follow instructions, no gross focal deficits. - Labs CBC & Chem 7: 08/26/21 03:18 08/26/21 03:18 Labs: Abnormal Lab Results - Last 24 Hours (Table) 08/25/21 08/26/21 08/26/21 Range/Units 15:02 03:18 03:18 WBC 15.5 H (3.8-10.6) k/uL Hgb 12.6 L (13.0-17.5) gm/dL Hct 38.0 L (39.0-53.0) % Plt Count 136 L (150-450) k/uL Neutrophils # 14.1 H (1.3-7.7) k/uL Lymphocytes # 0.7 L (1.0-4.8) k/uL ABG pH (7.35-7.45) ABG pCO2 (35-45) mmHg ABG Total CO2 (19-24) mmol/L ABG O2 Saturation (94-97) % Sodium 135 L (137-145) mmol/L Glucose 122 H (74-99) mg/dL Calcium 8.0 L (8.4-10.2) mg/dL Troponin I 15.100 H* (0.000-0.034) ng/mL 08/26/21 Range/Units 04:28 WBC (3.8-10.6) k/uL Hgb (13.0-17.5) gm/dL Hct (39.0-53.0) % Plt Count (150-450) k/uL Neutrophils # (1.3-7.7) k/uL Lymphocytes # (1.0-4.8) k/uL ABG pH 7.47 H (7.35-7.45) ABG pCO2 33 L (35-45) mmHg ABG Total CO2 25 H (19-24) mmol/L ABG O2 Saturation 97.9 H (94-97) % Sodium (137-145) mmol/L Glucose (74-99) mg/dL Calcium (8.4-10.2) mg/dL Troponin I (0.000-0.034) ng/mL Microbiology - Last 24 Hours (Table) 08/25/21 20:15 Gram Stain - Preliminary Sputum Sputum Culture - Preliminary Assessment and Plan Assessment: #1. Acute witnessed cardiac arrest in the emergency department, a V. fib arre st, requiring defibrillation, and CPR and intubation and mechanical ALLERGY #2. Acute ST elevated myocardial infarction, with EKG showing findings suggestive of anterolateral myocardial infarction, patient was taken to the CVL and underwent PTCA and stenting of the mid LAD, and OM 1 #3. Coronary artery disease #4. Acute ischemic cardiomyopathy, and EF 20-25% as evidenced on echocardiogram from 08/25/2021 #5. Hypothyroidism #6. Nonsmoker #7. Acute hypoxic respiratory failure related to acute cardiac arrest, requiring intubation and mechanical ventilation Recommendation: Discontinue propofol. Awaken the patient and assess bedside meeting parameters Consider placing the patient on a short course of pressure support of 8 and CPAP if he passes weaning parameters. Continue in the meantime his cardiac medications. Current on IV fluid to KVO. Lasix 40 mg IV push 1 considering his LV dysfunction Hold enteral feeding, Most likely will proceed to extubating the patient in the next hour. Patient will be placed on Coreg and Aldactone by cardiology. And most likely MATHEW inhibitor's in the next 24 hours. Continue dual antiplatelet therapy including aspirin and brilinta Critical care time is over 30 minutes Time with Patient: Greater than 30
--- NOTE | 2021-08-26 15:12 | P.HPIM ---
History of Present Illness H&P Date: 08/25/21 Chief Complaint: chest pain, assystle Patient developed chest pain at home, was transported to the hospital, he went into a non sustainable rhythm an code arrest was performed and patient went to the labor representative where a 100% occlusion of the lad was noted, angioplasty perform s tent placed, brought to the ICU intubated and mechanically ventilated Review of Systems ROS unobtainable: due to endotracheal tube Constitutional: Reports as per HPI Ears, nose, mouth and throat: Reports as per HPI Cardiovascular: Reports chest pain Gastrointestinal: Reports as per HPI Genitourinary: Reports as per HPI Musculoskeletal: Reports as per HPI Integumentary: Reports as per HPI Neurological: Reports as per HPI Psychiatric: Reports as per HPI Past Medical History Past Medical History: Coronary Artery Disease (CAD), Myocardial Infarction (AL), Thyroid Disorder Last Myocardial Infarction Date:: 08/24/2021 History of Any Multi-Drug Resistant Organisms: None Reported Past Surgical History: Heart Catheterization With Stent, Hernia Repair Past Anesthesia/Blood Transfusion Reactions: No Reported Reaction Date of Last Stent Placement:: 08/25/2021 Past Psychological History: No Psychological Hx Reported Smoking Status: Never smoker Past Alcohol Use History: None Reported Past Drug Use History: None Reported Medications and Allergies Home Medications Medication Instructions Recorded Confirmed Type Atorvastatin [Lipitor] 10 mg PO DAILY 08/25/21 08/25/21 History Levothyroxine Sodium [Synthroid] 75 mcg PO DAILY 08/25/21 08/25/21 History Ticagrelor [Brilinta] 90 mg PO BID 30 Days #60 tab 08/26/21 Rx Allergies Allergy/AdvReac Type Severity Reaction Status Date / Time No Known Allergies Allergy Verified 08/24/21 23:39 Physical Exam Osteopathic Statement: *. No significant issues noted on an osteopathic structural exam other than those noted in the History and Physical/Consult. Vitals: Vital Signs Temp Pulse Resp BP Pulse Ox 08/26/21 14:00 88 19 122/61 94 L 08/26/21 13:00 86 16 132/74 92 L 08/26/21 12:00 101.3 F H 86 12 149/78 93 L 08/26/21 11:41 28 H 08/26/21 11:00 81 28 H 147/82 92 L 08/26/21 10:00 84 22 136/77 93 L 08/26/21 09:00 72 32 H 142/80 90 L 08/26/21 08:00 99.7 F H 66 26 H 125/73 97 08/26/21 07:30 99.7 F H 70 22 130/75 97 08/26/21 07:00 70 26 H 117/68 96 08/26/21 06:30 67 22 110/67 99 08/26/21 06:00 67 25 H 117/69 99 08/26/21 05:30 67 24 110/65 98 08/26/21 05:00 70 25 H 119/69 99 08/26/21 04:30 68 22 119/67 98 08/26/21 04:00 100.4 F H 68 25 H 115/70 98 08/26/21 03:30 64 22 120/72 98 08/26/21 03:00 68 24 120/68 98 08/26/21 02:30 69 26 H 117/66 98 08/26/21 02:00 67 24 112/72 97 08/26/21 01:30 68 26 H 120/72 98 08/26/21 01:00 73 25 H 113/67 96 08/26/21 00:30 73 26 H 130/73 96 08/26/21 00:00 100.2 F H 79 16 144/84 95 08/25/21 23:30 72 26 H 121/71 97 08/25/21 23:00 73 25 H 120/70 96 08/25/21 22:30 79 30 H 127/69 95 08/25/21 22:00 81 27 H 127/75 96 08/25/21 21:30 72 26 H 123/71 97 08/25/21 21:00 72 26 H 123/72 97 08/25/21 20:30 70 27 H 123/74 95 08/25/21 20:00 99.4 F 68 27 H 114/70 94 L 08/25/21 19:30 67 24 129/73 94 L 08/25/21 19:00 71 26 H 115/73 08/25/21 18:30 68 22 123/73 08/25/21 18:00 68 24 116/69 93 L 08/25/21 17:30 65 21 114/75 95 08/25/21 17:00 64 23 114/70 95 08/25/21 16:30 63 22 115/75 08/25/21 16:00 99.7 F H 63 21 114/73 96 08/25/21 15:30 63 22 113/76 95 08/25/21 15:00 59 L 20 105/70 98 Intake and Output 08/25/21 08/26/21 08/26/21 22:59 06:59 14:59 Intake Total 982.144 990.537 381.302 Output Total 601 995 1991 Balance 387.144 700.537 -968.698 Intake: IV 800 800 320 .9 800 800 320 Intake, IV Titration 182.144 190.537 31.302 Amount propofoL 1,000 mg In 182.144 190.537 31.302 Empty Bag 1 bag @ Titrate IV .Q0M [facility] Rx#: [id number] Other 30 Output: Gastric Drainage 300 Urine 646 023 6849 Other: Voiding Method Indwelling Catheter Indwelling Catheter Indwelling Catheter Weight 111 kg Patient is currently intubated and ventilated Heent: Pupils equal and reactive to light otherwise patient sedated at this time No JVD No Bruit were noted at this time Hrrt: No murmur, regular rate and rhythm,3 Lungs: Clear bilaterally, mechanically ventilated Abdomen: Soft non tender positive bowel sounds Genitalia: Normal male Extremes: Cool,dry, no redness, no edema Results CBC & Chem 7: 08/26/21 03:18 08/26/21 03:18 Labs: Abnormal Lab Results - Last 24 Hours (Table) 08/25/21 08/26/21 08/26/21 Range/Units 15:02 03:18 03:18 WBC 15.5 H (3.8-10.6) k/uL Hgb 12.6 L (13.0-17.5) gm/dL Hct 38.0 L (39.0-53.0) % Plt Count 136 L (150-450) k/uL Neutrophils # 14.1 H (1.3-7.7) k/uL Lymphocytes # 0.7 L (1.0-4.8) k/uL ABG pH (7.35-7.45) ABG pCO2 (35-45) mmHg ABG Total CO2 (19-24) mmol/L ABG O2 Saturation (94-97) % Sodium 135 L (137-145) mmol/L Glucose 122 H (74-99) mg/dL Calcium 8.0 L (8.4-10.2) mg/dL Troponin I 15.100 H* (0.000-0.034) ng/mL 08/26/21 Range/Units 04:28 WBC (3.8-10.6) k/uL Hgb (13.0-17.5) gm/dL Hct (39.0-53.0) % Plt Count (150-450) k/uL Neutrophils # (1.3-7.7) k/uL Lymphocytes # (1.0-4.8) k/uL ABG pH 7.47 H (7.35-7.45) ABG pCO2 33 L (35-45) mmHg ABG Total CO2 25 H (19-24) mmol/L ABG O2 Saturation 97.9 H (94-97) % Sodium (137-145) mmol/L Glucose (74-99) mg/dL Calcium (8.4-10.2) mg/dL Troponin I (0.000-0.034) ng/mL Microbiology - Last 24 Hours (Table) 08/25/21 20:15 Gram Stain - Preliminary Sputum Sputum Culture - Preliminary Thrombosis Risk Factor Assmnt - DVT/VTE Prophylaxis DVT/VTE Prophylaxis: Pharmacologic Prophylaxis ordered - Choose All That Apply Any of the Below Risk Factors Present?: Yes Each Factor Represents 1 point: Acute AL, Obesity (BMI >25) Other Risk Factors: Yes Each Risk Factor Represents 2 Points: Age 61-74 years Other congenital or acquired thrombophilia - If yes, enter type in comment: No Thrombosis Risk Factor Assessment Total Risk Factor Score: 4 Thrombosis Risk Factor Assessment Level: Moderate Risk Assessment and Plan (1) Acute myocardial infarction Current Visit: Yes Status: Acute Code(s): I21.9 - ACUTE MYOCARDIAL INFARCTION, UNSPECIFIED SNOMED Code(s): 80538655 (2) Arrhythmia as complication of acute myocardial infarction Current Visit: Yes Status: Acute Code(s): I49.9 - CARDIAC ARRHYTHMIA, UNSPECIFIED; I21.9 - ACUTE MYOCARDIAL INFARCTION, UNSPECIFIED SNOMED Code(s): 564284020 (3) S/P angioplasties Current Visit: Yes Status: Acute Code(s): Z98.62 - PERIPHERAL VASCULAR ANGIOPLASTY STATUS SNOMED Code(s): 897682433 (4) Stented coronary artery Current Visit: Yes Status: Acute Code(s): Z95.5 - PRESENCE OF CORONARY ANGIOPLASTY IMPLANT AND GRAFT SNOMED Code(s): 720186408 Plan: Patient admitted to the hospital via the Emergency Room Cardiology Consulted Patient taken directly to labor representative for emergent catherization with ptca will follow closely Time with Patient: Greater than 30
[2021-08-26] MEDS: SPIRONOLACTONE 25 MG TAB PO SCH (16:12)
[2021-08-26] MEDS: carvediloL 12.5 MG TAB PO SCH (16:12)
[2021-08-26] MEDS: ACETAMINOPHEN TAB 325 MG TAB PO PRN (22:01)
[2021-08-27 04:34] LABS: Basophils % (A) 0 %; Eosinophils # (A) 0.1 k/uL (0-0.7); Eosinophils % (A) 1 %; HGB 11.8 gm/dL (13.0-17.5); Lymphocytes # (A) 0.9 k/uL (1.0-4.8); Lymphocytes % (A) 8 %; MCH 28.3 pg (25.0-35.0); MCHC 34.7 g/dL (31.0-37.0); MCV 81.7 fL (80.0-100.0); Mean Platelet Volume 8.5; Monocytes # (A) 0.4 k/uL (0-1.0); Monocytes % (A) 3 %; Neutrophils # (A) 9.9 k/uL (1.3-7.7); Neutrophils % (A) 87 %; Platelet Count 119 k/uL (150-450); RBC 4.17 m/uL (4.30-5.90); RDW 13.3 % (11.5-15.5); WBC 11.4 k/uL (3.8-10.6)
[2021-08-27 04:47] LABS: African American GFR (CKD) >90 (>60 ml/min/1.73 sqM); Anion Gap 6 mmol/L; Blood Urea Nitrogen 15 mg/dL (9-20); Calcium 8.1 mg/dL (8.4-10.2); Carbon Dioxide 24 mmol/L (22-30); Chloride 104 mmol/L (98-107); Glucose 95 mg/dL (74-99); Non-African American GFR(CKD) 86 (>60 ml/min/1.73 sqM); Potassium 3.2 mmol/L (3.5-5.1); Sodium 134 mmol/L (137-145)
[2021-08-27] MEDS: LEVOTHYROXINE 75 MCG TAB PO SCH (06:42)
[2021-08-27] MEDS: POTASSIUM CHLORIDE ER 20 MEQ TAB.ER PO SCH ×2 (06:42→08:16)
[2021-08-27] MEDS: TICAGRELOR 90 MG TAB PO SCH (08:15)
[2021-08-27] MEDS: SPIRONOLACTONE 25 MG TAB PO SCH (08:16)
[2021-08-27] MEDS: PANTOPRAZOLE 40 MG/10 ML VIAL IVP SCH (08:16)
[2021-08-27] MEDS: ATORVASTATIN 80 MG TAB PO SCH (08:16)
[2021-08-27] MEDS: carvediloL 12.5 MG TAB PO SCH ×2 (08:16→16:51)
[2021-08-27] MEDS: ASPIRIN 81 MG PO SCH (08:16)
--- NOTE | 2021-08-27 08:40 | XR ---
EXAMINATION TYPE: XR chest 1V portable DATE OF EXAM: 08/27/2021 COMPARISON: 08/26/2021 INDICATION: Tube placement TECHNIQUE: Single frontal view of the chest is obtained. FINDINGS: The heart size is normal. The pulmonary vasculature is normal. There may be a minimal infiltrate at the right costophrenic angle. IMPRESSION: 1. Minimal right basilar infiltrate is nonspecific. Consider subsegmental atelectasis.
--- NOTE | 2021-08-27 11:19 | P.PN ---
Subjective this is a 71-year-old male with a past medical history of dyslipidemia, hypothyroidism. He does not follow with a intelligence specialist. Patient presented to the emergency department 08/25/2021 with left arm pain on and off, he collapsed and was found to be in Vfib, shocked, resuscitated, intubated. EKG revealed sinus mechanism with ST elevation in lead 1, aVL, V2 through V5 suggestive of an anterolateral [place]. HIs troponin peaked at 15.1. Patient was taken to the agricultural labor camp manager, cardiac catheterization was performed by Dr. Lynn which revealed occluded,100% occlusion of the mid LAD, LAD with moderate disease throughout, obtuse marginal branch 90% stenosis, 85% lesion in the first. obtuse marginal comes off the main circumflex. patient underwent successful stenting of the mid LAD and first obtuse marginal branch of circumflex. Echocardiogram revealed EF of 2025 percent, apical wall motion hypokinetic and mid LV wall motional hypokinetic. Patient seen and examined at bedside, he is up in the bedside chair, and is improving each day. He is alert and oriented. He denies any chest pain, shortness of breath, lightheadedness, dizziness. He has been weaned to room air. He is not on any vaspressors. Blood pressure 136/77, 60, maintaining oxygen s aturations on room air. Patient is currently maintained on aspirin 81 mg daily, atorvastatin 80 mg daily, Brilinta 90 mg twice a day, carvedilol 25mg BID and spironolactone 25mg BID. Laboratory data reviewed WBC 11.4, hemoglobin 11.8, platelets 119, sodium 134, potassium 3.2, BUN 15, serum creatinine 0.9 GENERAL: In no acute distress. NECK: Supple without JVD or thyromegaly. LUNGS: Breath sounds diminished to auscultation bilaterally. Respiration equal and unlabored. HEART: Regular rate and rhythm Systolic murmur, No rubs or gallops. S1 and S2 heard. EXTREMITIES: Normal range of motion, no edema. No clubbing or cyanosis. Peripheral pulses intact. SKIN: Right femoral cath site, clean, dry no hematoma ASSESSMENT: STEMI s/p PCI mid LAD and OM1 Ischemic cardiomyopathy EF 20-25% Hypothyroidism Acute hypoxic respiratory failure requiring intubation and mechanical ventilation extubated 08/26 Dyslipidemia Fever Leukocytosis Hypokalemia PLAN: -Start Losartan 12.5mg afternoon, and adjust as tolerated -Patient's Brilinta medication is not covered, we will switch to plavix. Patient received Brilinta this morning, will give Plavix loading dose tonight and start Plavix 75mg daily tomorrow -Continue aspirin, statin, carvedilol, spironolactone -Replace potassium per protocol -Further recommendations based on clinical course Objective - Vital Signs Vital signs: Vital Signs Temp 100.6 F H 08/26/21 20:00 Pulse 73 08/27/21 07:00 Resp 17 08/27/21 07:00 BP 108/66 08/27/21 07:00 Pulse Ox 95 08/27/21 07:00 Intake & Output 08/26/21 08/27/21 08/27/21 18:59 06:59 18:59 Intake Total 811.302 760 Output Total 1675 690 100 Balance -863.698 70 -100 Weight 106.2 kg Intake: IV 400 40 .9 400 40 Intake, IV Titration 31.302 Amount propofoL 1,000 mg In 31.302 Empty Bag 1 bag @ Titrate IV .Q0M [facility] Rx#: [id number] Oral 350 720 Other 30 Output: Urine 1675 690 100 Other: Voiding Method Indwelling Catheter Indwelling Catheter - Labs CBC & Chem 7: 08/27/21 03:24 08/27/21 03:24 Labs: Abnormal Lab Results - Last 24 Hours (Table) 08/27/21 08/27/21 Range/Units 03:24 03:24 WBC 11.4 H (3.8-10.6) k/uL RBC 4.17 L (4.30-5.90) m/uL Hgb 11.8 L (13.0-17.5) gm/dL Hct 34.0 L (39.0-53.0) % Plt Count 119 L (150-450) k/uL Neutrophils # 9.9 H (1.3-7.7) k/uL Lymphocytes # 0.9 L (1.0-4.8) k/uL Sodium 134 L (137-145) mmol/L Potassium 3.2 L (3.5-5.1) mmol/L Calcium 8.1 L (8.4-10.2) mg/dL Microbiology - Last 24 Hours (Table) 08/25/21 20:15 Gram Stain - Preliminary Sputum Sputum Culture - Preliminary
--- NOTE | 2021-08-27 11:22 | P.PN ---
Subjective Progress Note Date: 08/27/21 Principal diagnosis: Acute hypoxic referral to failure secondary to acute ST elevation myocardial infarction and cardiac arrest. 71-year-old white male patient with past medical history of hypothyroidism, and hyperlipidemia, who came into the emergency department on 08/24/2021 for evaluation of left arm discomfort and shortness of breath. Patient's follows with the PA system for his medical care. 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 In the evening he began experiencing some left arm discomfort, and he had told his that something was wrong and she had drove him to the hospital for evaluation. As the patient was being evaluated in the emergency department patient became unresponsive and had a collapsed. He was found to be in a V. fib, he was defibrillated, resuscitated, he required CPR, he was emergently intubated and placed on mechanical ventilator and was taken to the Cleaning Professional. His EKG revealed sinus mechanism with ST elevation in 1, aVL, V2 through V5, suggestive of anterolateral myocardial infarction, in the [facility] patient underwent PTCA and stenting of a totally occluded mid LAD in the setting of an acute anterior ST elevated myocardial infarction with drug-eluting stent, and PTCA and stenting of high-grade first obtuse marginal stenosis with a drug-eluting stent by Dr. SHAKIRA Lynn, patient was then returned to the intensive care unit, and he remains on mechanical ventilator, on assist-control mode with a rate of 14, tidal volume is 500, FiO2 of 50% and PEEP of 5, this morning's blood gas shows pO2 of 118, pCO2 43, pH of 7.37, this was done and FiO2 of 60%, his current infusions include 0.9 normal saline at a rate of 75 ML per hour, he is on Tirofiban infusion at 0.15 mics/per kilo per hour. Patient will be started on Brillinta, aspirin, high intensity dose Lipitor. Currently hemodynamically stable, not requiring any vasopressor support, echocardiogram is pending, FiO2 has been dropped down to 50%. His chest x-ray has been reviewed showing left base atelectasis. Urine output is in the order of 20-25 ML per hour. Reevaluated today on 08/26/2021, patient remains in the ICU, intubated and mechanically ventilated. He is on assist control rate of 14, volume 500 FiO2 50% and PEEP of 5 ABG showed a pO2 of 87 pCO2 of 33 pH of 7.47. Patient is now on IV fluid at 100 mL/h and I cut it down to KVO propofol at 30 mcg/kg/m, he was briefly on norepinephrine last night, today it is off. Chest x-ray showed cardiomegaly, and retrocardiac atelectasis, doubt infiltrate. Echocardiogram showed severe LV dysfunction with ejection fraction of 20-25%. Respiratory see count today is 15.5 hemoglobin is 12.6. Left lites are normal. Renal profile is normal. Troponin is 15.1. After evaluating the patient this morning, I recommended that the patient gets awakened, and will discontinue propofol, and we will likely consider weaning and possibly extubating the patient sometime today. Reevaluated today on 08/27/2021, a shunt remains in the ICU, off mechanical ve ntilation, patient was extubated yesterday, tolerated the extubation well. He is presently on room air. Chest x-ray showed no evidence of rate pneumonia or evidence of congestive heart failure. Patient is relatively asymptomatic, CBC is relatively normal electrolytes are normal except for low potassium of 3.2 being corrected as per protocol. Renal profile is normal. Objective - Vital Signs Vital signs: Vital Signs Temp 37.1 F L 08/27/21 08:00 Pulse 57 L 08/27/21 10:00 Resp 14 08/27/21 10:00 BP 132/78 08/27/21 10:00 Pulse Ox 96 08/27/21 10:00 Intake & Output 08/26/21 08/27/21 08/27/21 18:59 06:59 18:59 Intake Total 811.302 760 200 Output Total 1675 690 250 Balance -863.698 70 -50 Weight 106.2 kg Intake: IV 400 40 .9 400 40 Intake, IV Titration 31.302 Amount propofoL 1,000 mg In 31.302 Empty Bag 1 bag @ Titrate IV .Q0M [facility] Rx#: [id number] Oral 350 720 200 Other 30 Output: Urine 1675 690 250 Other: Voiding Method Indwelling Catheter Indwelling Catheter - Exam GENERAL EXAM: Revealed a 71-year-old white male in bed, on room air. Asymptomatic. HEAD: Normocephalic/atraumatic. Claudette, EOMI, nonicteric, no neck masses, no JVD, moist mucous membranes CHEST: No chest wall deformity. Symmetrical expansion. LUNGS: Good breath sound bilaterally no crackles or rhonchi or wheezes. CVS: Stent S1 and S2, no S3 gallop. ABDOMEN: Nontender no megaly no rebound no guarding. EXTREMITIES: No clubbing, no edema, no cyanosis, 2+ pulses and upper and lower extremities. SKIN: No rashes CENTRAL NERVOUS SYSTEM: Alert and oriented 3 focal deficits. Psychiatric: Normal mood affect and normal mental status examination. - Labs CBC & Chem 7: 08/27/21 03:24 08/27/21 03:24 Labs: Abnormal Lab Results - Last 24 Hours (Table) 08/27/21 08/27/21 Range/Units 03:24 03:24 WBC 11.4 H (3.8-10.6) k/uL RBC 4.17 L (4.30-5.90) m/uL Hgb 11.8 L (13.0-17.5) gm/dL Hct 34.0 L (39.0-53.0) % Plt Count 119 L (150-450) k/uL Neutrophils # 9.9 H (1.3-7.7) k/uL Lymphocytes # 0.9 L (1.0-4.8) k/uL Sodium 134 L (137-145) mmol/L Potassium 3.2 L (3.5-5.1) mmol/L Calcium 8.1 L (8.4-10.2) mg/dL Microbiology - Last 24 Hours (Table) 08/25/21 20:15 Gram Stain - Preliminary Sputum Sputum Culture - Preliminary Assessment and Plan Assessment: #1. Acute witnessed cardiac arrest in the emergency department, a V. fib arrest, requiring defibrillation, and CPR and intubation and mechanical ALLERGY #2. Acute ST elevated myocardial infarction, with EKG showing findings suggest min of anterolateral myocardial infarction, patient was taken to the CVL and underwent PTCA and stenting of the mid LAD, and OM 1 #3. Coronary artery disease #4. Acute ischemic cardiomyopathy, and EF 20-25% as evidenced on echocardiogram from 08/25/2021 #5. Hypothyroidism #6. Nonsmoker #7. Acute hypoxic respiratory failure related to acute cardiac arrest, requiring intubation and mechanical ventilation, patient was extubated successfully on 08/26/2021, and tolerated the extubation well. Recommendation: Continue dual antiplatelet therapy including aspirin and brilinta\ Continue cardiac medications as ordered by cardiology for ischemic cardiomyopathy. Transfer patient out of the ICU to a monitored bed on selective. Ambulate patient as tolerates. We will continue to follow. Time with Patient: Less than 30
[2021-08-27] MEDS: LOSARTAN 25 MG TAB PO SCH (12:42)
[2021-08-27 13:21] VITALS: BMI 30.9
[2021-08-27] MEDS ORDERED: CLOPIDOGREL 75 MG TAB PO ONE (20:00)
[2021-08-27] MEDS: ACETAMINOPHEN TAB 325 MG TAB PO PRN (20:03)
[2021-08-28] MEDS: carvediloL 12.5 MG TAB PO SCH ×2 (06:10→17:21)
[2021-08-28] MEDS: LEVOTHYROXINE 75 MCG TAB PO SCH (06:10)
[2021-08-28 07:25] LABS: Basophils % (A) 0 %; Eosinophils # (A) 0.2 k/uL (0-0.7); Eosinophils % (A) 2 %; HCT 35.1 % (39.0-53.0); HGB 11.7 gm/dL (13.0-17.5); Lymphocytes # (A) 0.9 k/uL (1.0-4.8); Lymphocytes % (A) 8 %; MCH 27.8 pg (25.0-35.0); MCHC 33.2 g/dL (31.0-37.0); MCV 83.7 fL (80.0-100.0); Mean Platelet Volume 8.6; Monocytes # (A) 0.5 k/uL (0-1.0); Monocytes % (A) 4 %; Neutrophils # (A) 9.7 k/uL (1.3-7.7); Neutrophils % (A) 85 %; Platelet Count 127 k/uL (150-450); RDW 12.9 % (11.5-15.5); WBC 11.4 k/uL (3.8-10.6)
[2021-08-28 07:50] LABS: ALT 38 U/L (4-49); AST 67 U/L (17-59); African American GFR (CKD) >90 (>60 ml/min/1.73 sqM); Albumin 3.3 g/dL (3.5-5.0); Alkaline Phosphatase 79 U/L (38-126); Anion Gap 9 mmol/L; Blood Urea Nitrogen 15 mg/dL (9-20); Calcium 8.8 mg/dL (8.4-10.2); Carbon Dioxide 21 mmol/L (22-30); Chloride 102 mmol/L (98-107); Glucose 99 mg/dL (74-99); Non-African American GFR(CKD) >90 (>60 ml/min/1.73 sqM); Potassium 3.5 mmol/L (3.5-5.1); Sodium 132 mmol/L (137-145); Total Bilirubin 1.6 mg/dL (0.2-1.3); Total Protein 5.8 g/dL (6.3-8.2)
[2021-08-28] MEDS: LOSARTAN 25 MG TAB PO SCH (09:30)
[2021-08-28] MEDS: CLOPIDOGREL 75 MG TAB PO SCH (09:30)
[2021-08-28] MEDS: PANTOPRAZOLE 40 MG/10 ML VIAL IVP SCH (09:30)
[2021-08-28] MEDS: ASPIRIN 81 MG PO SCH (09:30)
[2021-08-28] MEDS: SPIRONOLACTONE 25 MG TAB PO SCH (09:30)
[2021-08-28] MEDS: ATORVASTATIN 80 MG TAB PO SCH (09:30)
--- NOTE | 2021-08-28 11:16 | P.PN ---
Subjective this is a 71-year-old male with a past medical history of dyslipidemia, hypothyroidism. He does not follow with a adjunct faculty for medical terminology. Patient presented to the emergency department 08/25/2021 with left arm pain on and off, he collapsed and was found to be in Vfib, shocked, resuscitated, intubated. EKG revealed sinus mechanism with ST elevation in lead 1, aVL, V2 through V5 suggestive of an anterolateral [place]. HIs troponin peaked at 15.1. Patient was taken to the labor service representative, cardiac catheterization was performed by Dr. Lynn which revealed occluded,100% occlusion of the mid LAD, LAD with moderate disease throughout, obtuse marginal branch 90% stenosis, 85% lesion in the first. obtuse marginal comes off the main circumflex. patient underwent successful stenting of the mid LAD and first obtuse marginal branch of circumflex. Echocardiogram revealed EF of 2025 percent, apical wall motion hypokinetic and mid LV wall motional hypokinetic. Patient seen and examined at bedside, Is now on 3S cardiac stepdown unit. He is up in the bedside chair, and is improving each day. He is alert and oriented. He denies any chest pain, shortness of breath, lightheadedness, dizziness. Blood pressure 110/61, heart rate 58 afebrile maintaining oxygen saturations on room air. Patient is currently maintained on aspirin 81 mg daily, atorvastatin 80 mg daily, Plavix 75 mg daily carvedilol 25mg BID and spironolactone 25mg BID, losartan 12.5 mg daily. Laboratory data reviewed WBC 11.4, hemoglobin 11.7, platelets 127, sodium 132, potassium 3.5, BUNs 15, serum creatinine 0.8, magnesium 2.1. GENERAL: In no acute distress. NECK: Supple without JVD or thyromegaly. LUNGS: Breath sounds diminished to auscultation bilaterally. Respiration equal and unlabored. HEART: Regular rate and rhythm Systolic murmur, No rubs or gallops. S1 and S2 heard. EXTREMITIES: Normal range of motion, no edema. No clubbing or cyanosis. Peripheral pulses intact. SKIN: Right femoral cath site, clean, dry no hematoma ASSESSMENT: STEMI s/p PCI mid LAD and OM1 Ischemic cardiomyopathy EF 20-25% Hypothyroidism Acute hypoxic respiratory failure requiring intubation and mechanical ventilation extubated 08/26 Dyslipidemia Fever Leukocytosis Hypokalemia PLAN: -Continue Losartan 12.5mg afternoon -Continue dual antiplatelet therapy with aspirin and Plavix -Continue statin, carvedilol, spironolactone -We recommend a LifeVest prior to discharge. Due to Vfib arrest, STEMI, severe cardiomyopathy and risk for sudden cardiac. -Further recommendations based on clinical course Objective - Vital Signs Vital signs: Vital Signs Temp 98.3 F 08/28/21 08:00 Pulse 58 L 08/28/21 08:00 Resp 16 08/28/21 08:00 BP 110/61 08/28/21 08:00 Pulse Ox 97 08/28/21 08:00 Intake & Output 08/27/21 08/28/21 08/28/21 18:59 06:59 18:59 Intake Total 700 180 Output Total 550 Balance 150 180 Weight 106.2 kg Intake: Oral 700 180 Output: Urine 550 Other: Voiding Method Urinal Toilet Urinal # Voids 1 - Labs CBC & Chem 7: 08/28/21 06:41 08/28/21 06:41 Labs: Abnormal Lab Results - Last 24 Hours (Table) 08/28/21 08/28/21 Range/Units 06:41 06:41 WBC 11.4 H (3.8-10.6) k/uL RBC 4.20 L (4.30-5.90) m/uL Hgb 11.7 L (13.0-17.5) gm/dL Hct 35.1 L (39.0-53.0) % Plt Count 127 L (150-450) k/uL Neutrophils # 9.7 H (1.3-7.7) k/uL Lymphocytes # 0.9 L (1.0-4.8) k/uL Sodium 132 L (137-145) mmol/L Carbon Dioxide 21 L (22-30) mmol/L Total Bilirubin 1.6 H (0.2-1.3) mg/dL AST 67 H (17-59) U/L Total Protein 5.8 L (6.3-8.2) g/dL Albumin 3.3 L (3.5-5.0) g/dL Microbiology - Last 24 Hours (Table) 08/25/21 20:15 Gram Stain - Final Sputum Sputum Culture - Final
--- NOTE | 2021-08-28 13:21 | P.PN ---
Subjective Progress Note Date: 08/28/21 Principal diagnosis: Witnessed arrest Patient was a witnessed arrest in the emergency room, went to the Airport Engineer, single-vessel disease angioplasty with stent placement, patient was rested on vent overnight and subsequently doing quite well currently on the stepdown unit waiting on LifeVest possibly home tomorrow Objective - Vital Signs Vital signs: Vital Signs Temp 97 F L 08/28/21 11:54 Pulse 58 L 08/28/21 11:54 Resp 16 08/28/21 11:54 BP 127/72 08/28/21 11:54 Pulse Ox 96 08/28/21 11:54 Intake & Output 08/27/21 08/28/21 08/28/21 18:59 06:59 18:59 Intake Total 700 360 Output Total 550 Balance 150 360 Weight 106.2 kg Intake: Oral 700 360 Output: Urine 550 Other: Voiding Method Urinal Toilet Urinal # Voids 1 - Exam General: [Patient awake, alert and oriented times 3. Patient in no acute distress.] HEENT: [PERRL. EOMI. No pharyngeal erythema or exudate.] Neck: [No adenopathy.] Cardiac: [Heart regular in rate and rhythm. No S3. No S4. No clicks, rubs. No murmur.] Lungs: [Clear to auscultation bilaterally.] Abdomen: [No mass. No organomegaly. Bowel sounds presnt and normoactive in all 4 quadrants.] Extremes: [No edema no cyanosis no claudication normal pulses] : Normal male genitalia Musculoskeletal: [No joint erythema, edema or tenderness.] Skin: [No rash.] Neurologic: [No lateralizing deficits. CN II - XII grossly intact.] Lymphatic: [No adenopathy.] - Labs CBC & Chem 7: 08/28/21 06:41 08/28/21 06:41 Labs: Abnormal Lab Results - Last 24 Hours (Table) 08/28/21 08/28/21 Range/Units 06:41 06:41 WBC 11.4 H (3.8-10.6) k/uL RBC 4.20 L (4.30-5.90) m/uL Hgb 11.7 L (13.0-17.5) gm/dL Hct 35.1 L (39.0-53.0) % Plt Count 127 L (150-450) k/uL Neutrophils # 9.7 H (1.3-7.7) k/uL Lymphocytes # 0.9 L (1.0-4.8) k/uL Sodium 132 L (137-145) mmol/L Carbon Dioxide 21 L (22-30) mmol/L Total Bilirubin 1.6 H (0.2-1.3) mg/dL AST 67 H (17-59) U/L Total Protein 5.8 L (6.3-8.2) g/dL Albumin 3.3 L (3.5-5.0) g/dL Microbiology - Last 24 Hours (Table) 08/25/21 20:15 Gram Stain - Final Sputum Sputum Culture - Final Assessment and Plan (1) Acute myocardial infarction Current Visit: Yes Status: Acute Code(s): I21.9 - ACUTE MYOCARDIAL INFARCTION, UNSPECIFIED SNOMED Code(s): 72000283 (2) Arrhythmia as complication of acute myocardial infarction Current Visit: Yes Status: Acute Code(s): I49.9 - CARDIAC ARRHYTHMIA, UNSPECIFIED; I21.9 - ACUTE MYOCARDIAL INFARCTION, UNSPECIFIED SNOMED Code(s): 813828602 (3) S/P angioplasties Current Visit: Yes Status: Acute Code(s): Z98.62 - PERIPHERAL VASCULAR ANGIOPLASTY STATUS SNOMED Code(s): 971367846 (4) Stented coronary artery Current Visit: Yes Status: Acute Code(s): Z95.5 - PRESENCE OF CORONARY ANGIOPLASTY IMPLANT AND GRAFT SNOMED Code(s): 182049657 Plan: Patient admitted to the hospital via the Emergency Room Cardiology Consulted Patient taken directly to logging rafter laborer for emergent catherization with ptca Currently doing quite well, waiting on LifeVest Possibly home tomorrow will follow closely Time with Patient: Greater than 30
--- NOTE | 2021-08-28 15:01 | P.PN ---
Progress Note - Text Impression 71-year-old male patient who presented with acute myocardial infarction, ST elevation VF arrest in the emergency room Expeditiously resuscitated Taken to the Mobility Engineer Stenting to the totally occluded mid LAD Stenting to a high-grade stenosis in the OM1 Cardiogenic shock subsequently with acute respiratory failure Intubated and on pressors Weaned off support after 24 hours with gradual improvement Severe LV dysfunction ejection fraction very severely reduced, less than 25% Recommend maximal doses of beta blockers and angiotensin receptor blockers spironolactone statins, dual antiplatelet therapy LifeVest for 4 months Reevaluation of LV function in 3-4 months If left ventricular systolic function has improved beyond 40% then an empiric ICD would not be indicated If his left ventricular systolic function is below 35% at that time, empiric internal ICD would be indicated
[2021-08-29] MEDS: carvediloL 12.5 MG TAB PO SCH (06:34)
[2021-08-29] MEDS: LEVOTHYROXINE 75 MCG TAB PO SCH (06:34)
[2021-08-29] MEDS: CLOPIDOGREL 75 MG TAB PO SCH (08:38)
[2021-08-29] MEDS: PANTOPRAZOLE 40 MG/10 ML VIAL IVP SCH (08:38)
[2021-08-29] MEDS: ATORVASTATIN 80 MG TAB PO SCH (08:38)
[2021-08-29] MEDS: LOSARTAN 25 MG TAB PO SCH (08:38)
[2021-08-29] MEDS: ASPIRIN 81 MG PO SCH (08:38)
[2021-08-29] MEDS: SPIRONOLACTONE 25 MG TAB PO SCH (08:38)
[2021-08-29 08:59] VITALS: PULSE 55; TEMP 97.8
[2021-08-29] MEDS ORDERED: SPIRONOLACTONE 25 MG TAB PO STA (09:59)
--- NOTE | 2021-08-29 11:47 | P.PN ---
Subjective this is a 71-year-old male with a past medical history of dyslipidemia, hypothyroidism. He does not follow with a service station manager. Patient presented to the emergency department 08/25/2021 with left arm pain on and off, he collapsed and was found to be in Vfib, shocked, resuscitated, intubated. EKG revealed sinus mechanism with ST elevation in lead 1, aVL, V2 through V5 suggestive of an anterolateral [place]. HIs troponin peaked at 15.1. Patient was taken to the laboratory animal caretaker, cardiac catheterization was performed by Dr. yLnn which revealed occluded,100% occlusion of the mid LAD, LAD with moderate disease throughout, obtuse marginal branch 90% stenosis, 85% lesion in the first. obtuse marginal comes off the main circumflex. patient underwent successful stenting of the mid LAD and first obtuse marginal branch of circumflex. Echocardiogram revealed EF of 2025 percent, apical wall motion hypokinetic and mid LV wall motional hypokinetic. Patient seen and examined at bedside. He is up in the bedside chair, and is improving each day. He feels well today. He denies any chest pain, shortness of breath, lightheadedness, dizziness. Blood pressure 125/69, heart rate 60, afebrile, maintaining saturations on room air Patient is currently maintained on aspirin 81 mg daily, atorvastatin 80 mg daily, Plavix 75 mg daily carvedilol 25mg BID and spironolactone 25mg BID, losartan 12.5 mg daily. Laboratory data reviewed from yesterday WBC 11.4, hemoglobin 11.7, platelets 127, sodium 132, potassium 3.5, BUNs 15, serum creatinine 0.8, magnesium 2.1. Telemetry reviewed patient in sinus mechanism heart rate 5060s. GENERAL: In no acute distress. NECK: Supple without JVD or thyromegaly. LUNGS: Breath sounds diminished to auscultation bilaterally. Respiration equal and unlabored. HEART: Regular rate and rhythm Systolic murmur, No rubs or gallops. S1 and S2 heard. EXTREMITIES: Normal range of motion, no edema. No clubbing or cyanosis. Periphe ral pulses intact. SKIN: Right femoral cath site, clean, dry no hematoma ASSESSMENT: STEMI s/p PCI mid LAD and OM1 Ischemic cardiomyopathy EF 20-25% Hypothyroidism Acute hypoxic respiratory failure requiring intubation and mechanical ventilation extubated 10/5 Dyslipidemia Fever Leukocytosis Hypokalemia PLAN: -Increase his spironolactone to 50mg daily -Continue Losartan 12.5mg afternoon -Continue dual antiplatelet therapy with aspirin and Plavix -Continue statin, carvedilol -We recommend a LifeVest prior to discharge. Due to Vfib arrest, STEMI, severe cardiomyopathy and risk for sudden cardiac. -From cardiology perspective once LifeVest is delivered patient stable to be discharged home. Follow-up with Dr. Lynn in one week Objective - Vital Signs Vital signs: Vital Signs Temp 97.8 F 08/29/21 08:00 Pulse 55 L 08/29/21 08:00 Resp 20 08/29/21 08:00 BP 125/69 08/29/21 08:00 Pulse Ox 98 08/29/21 08:00 Intake & Output 08/28/21 08/29/21 08/29/21 18:59 06:59 18:59 Intake Total 980 120 Output Total 80 Balance 980 -80 120 Weight 105.9 kg Intake: Oral 980 120 Output: Urine 80 Other: Voiding Method Toilet Toilet Urinal Urinal # Voids 1 2 - Labs CBC & Chem 7: 08/28/21 06:41 08/28/21 06:41
[2021-08-29 11:56] VITALS: BP 134/72; RESP 18
--- NOTE | 2021-08-29 15:24 | P.DS ---
Providers Date of admission: 08/25/21 00:09 Expected date of discharge: 08/29/21 Attending physician: Gato Fall Consults: 08/24/21 23:28 Consult Physician Stat Consulting Provider: [facility] Consult Reason/Comments: STEMI ACTIVATION COMPLETE Do you want consulting provider notified?: Yes 08/25/21 09:51 Consult Physician Stat Consulting Provider: Hermelinda Kevin Consult Reason/Comments: ventilator management Do you want consulting provider notified?: Already Contacted Primary care physician: Physician Nonstaff - Discharge Diagnosis(es) (1) Acute myocardial infarction Current Visit: Yes Status: Acute (2) Arrhythmia as complication of acute myocardial infarction Current Visit: Yes Status: Acute (3) S/P angioplasties Current Visit: Yes Status: Acute (4) STEMI (ST elevation myocardial infarction) Current Visit: Yes Status: Acute (5) Stented coronary artery Current Visit: Yes Status: Acute (6) Ventricular fibrillation Current Visit: Yes Status: Acute Patient Condition at Discharge: Good Plan - Discharge Summary Discharge Rx Participant: No New Discharge Prescriptions: New Clopidogrel [Plavix] 75 mg PO DAILY 30 Days #30 tab carvediloL [Coreg*] 25 mg PO BID-W/MEALS 30 Days #30 tab Atorvastatin [Lipitor] 80 mg PO DAILY 30 Days #30 tab Aspirin 81 mg PO DAILY tab Spironolactone [Aldactone] 50 mg PO DAILY 30 Days #60 tab Losartan [Cozaar] 12.5 mg PO DAILY 30 Days #30 tab Nitroglycerin Sl Tabs [Nitrostat] 0.4 mg SUBLINGUAL Q5M PRN #25 tab PRN Reason: Chest Pain Discontinued Atorvastatin [Lipitor] 10 mg PO DAILY No Action Levothyroxine Sodium [Synthroid] 75 mcg PO DAILY Discharge Medication List Levothyroxine Sodium [Synthroid] 75 mcg PO DAILY 08/25/21 [History] Aspirin 81 mg PO DAILY tab 08/27/21 [Rx] Clopidogrel [Plavix] 75 mg PO DAILY 30 Days #30 tab 08/27/21 [Rx] Atorvastatin [Lipitor] 80 mg PO DAILY 30 Days #30 tab 08/29/21 [Rx] Losartan [Cozaar] 12.5 mg PO DAILY 30 Days #30 tab 08/29/21 [Rx] Nitroglycerin Sl Tabs [Nitrostat] 0.4 mg SUBLINGUAL Q5M PRN #25 tab 08/29/21 [Rx] Spironolactone [Aldactone] 50 mg PO DAILY 30 Days #60 tab 08/29/21 [Rx] carvediloL [Coreg*] 25 mg PO BID-W/MEALS 30 Days #30 tab 08/29/21 [Rx] Follow up Appointment(s)/Referral(s): Irineo Lynn MD [STAFF PHYSICIAN] - (Per Dr. Balderas, have pt be seen outpatient by Dr. Moses. ) Horacio Moses DO [STAFF PHYSICIAN] - 1 Week (Office to call you. ) Nonstaff,Physician [Primary Care Provider] - 1-2 days (Dr. Balderas) Activity/Diet/Wound Care/Special Instructions: 2 week supply of medications at hi and then fax hi [facility] list to the [facility] at [phone] AND [phone] Cardiology Instructions After Cardiac Catheterization with Stent Placement: 1. Aspirin as anti-platelet therapy - Aspirin lessens the chance of heart attack and stroke. It helps prevent blood clots from forming, allowing the blood to flow more easily. Each day, you will take one 81 mg (non-enteric coated) tablet daily. You will be taking aspirin as a lifelong medication. Do not stop unless instructed by your doctor. 2. Anti-platelet Therapy. -In addition to aspirin, you will take ONE of the following anti-platelet medications daily. This will help prevent a clot from forming in your stent: Plavix (clopidogrel) -You will need to take your anti-platelet medicine every day for 12 months -Please consult your heart doctor before you stop this medicine. -They may want you to continue for a longer period of time. 3. Statins -A statin medication lowers cholesterol levels in the blood. This helps slow the progression of heart disease. - Please take your statin medication as prescribed by your doctor. -You may be taking one of the following statins: Lipitor (atorvastatin) Other Medications: -Angiotensin II Receptor Barry- (Losartan) can help your heart work better after a heart attack and decrease the amount of damage from a heart attack -Beta barry. (Carvedilol) Is a medication that protects your heart from stress and can prevent future heart attacks. It can slow your heart rate. It can take weeks for your body to get used to a beta barry. The dose may need to be changed a few times as your body adjusts -Spironolactone (Aldactone)- is a type of diuretic; it helps the body get rid of extra salt and fluid. However, it also helps the body hold onto potassium. Do not stop taking these medicines without talking to your doctor. -Take all other medicines as directed by your doctor. Do not take any extra aspirin or ibuprofen. They can increase your risk of bleeding. Many [id number] drugs contain aspirin. If you are unsure about what the drug co ntains, check with your pharmacist before taking it. -For mild discomfort, you may take plain Tylenol (acetaminophen). Follow dose directions, but do not take more than 4,000 mg of acetaminophen in 24 hours. Contact your doctor right away or go to the nearest hospital Emergency Room if you have: -Severe angina or chest pain. (This may be a sign of a problem with your stent.) -Excessive bruising, blood in urine/stool or black tarry stools. Healthy LifeStyle It is important to keep a heart healthy lifestyle. This can improve your long- term health and decrease your risk for heart attacks. -Quitting tobacco: the most important thing you can do to protect your health. -Managing your blood cholesterol, blood pressure, weight, and stress. -The importance of regular exercise. -Heart Healthy Diet - Focus on more vegetables, fruit and seafood, whole grains, low fat dairy products, nuts, legumes. Limit meats, processed foods (foods in a can, package, box etc.),fast foods. Discharge Disposition: HOME SELF-CARE Plan of Treatment: will be discharged home with a LifeVest
[2021-08-30] MEDS ORDERED: SPIRONOLACTONE 25 MG TAB PO SCH (09:00)
== END 2021-08-29 19:00 | disposition home or self-care (01) | DRG 246 ==
LOC: EC 22:47 → 2SICU 08-25 00:09 → UNDOADMOB 08-25 00:09 → 2SICU 08-25 00:09 → 3SCARD 08-27 15:45
PROVIDERS: ADMIT Family Medicine; ATTEND Family Medicine
PROC: 027135Z Dilation of Coronary Artery, Two Arteries with Two Drug-eluting Intraluminal Devices, Percutaneous Approach (ICD-10-PCS; principal; 2021-08-25)
PROC: 5A12012 Performance of Cardiac Output, Single, Manual (ICD-10-PCS; 2021-08-25)
PROC: 4A023N7 Measurement of Cardiac Sampling and Pressure, Left Heart, Percutaneous Approach (ICD-10-PCS; 2021-08-25)
PROC: B2111ZZ Fluoroscopy of Multiple Coronary Arteries using Low Osmolar Contrast (ICD-10-PCS; 2021-08-25)
PROC: 5A2204Z Restoration of Cardiac Rhythm, Single (ICD-10-PCS; 2021-08-25)
PROC: 3E033XZ Introduction of Vasopressor into Peripheral Vein, Percutaneous Approach (ICD-10-PCS; 2021-08-25)
PROC: 0BH17EZ Insertion of Endotracheal Airway into Trachea, Via Natural or Artificial Opening (ICD-10-PCS; 2021-08-25)
PROC: 5A1945Z Respiratory Ventilation, 24-96 Consecutive Hours (ICD-10-PCS; 2021-08-25)
DX: I21.02 ST elevation (STEMI) myocardial infarction involving left anterior descending coronary artery (principal); I49.01 Ventricular fibrillation; I46.2 Cardiac arrest due to underlying cardiac condition; J96.01 Acute respiratory failure with hypoxia; R57.0 Cardiogenic shock; J98.11 Atelectasis; Z20.822 Contact with and (suspected) exposure to COVID-19; I25.10 Atherosclerotic heart disease of native coronary artery without angina pectoris; Z79.899 Other long term (current) drug therapy; Z79.890 Hormone replacement therapy; Z79.82 Long term (current) use of aspirin; Z79.02 Long term (current) use of antithrombotics/antiplatelets; E03.9 Hypothyroidism, unspecified; E78.5 Hyperlipidemia, unspecified; E87.6 Hypokalemia; D72.829 Elevated white blood cell count, unspecified; I25.5 Ischemic cardiomyopathy; I25.82 Chronic total occlusion of coronary artery; I51.7 Cardiomegaly
CPT/HCPCS: 31500; 36415; 36600; 71045; 80048; 80053; 82805; 83735; 84484; 85025; 85610; 85730; 87070; 87205; 87635; 92950; 93005; 93306; 93458; 94002; 94003; 96365; 96375; 99291

== ENCOUNTER → 2022-10-16 | Outpatient (CLI) | payer OTHER, MEDICARE ==
[2022-10-16 14:43] LABS: HCT 43.1 % (39.6-50.0); HGB 14.4 g/dL (13.0-17.0); MCH 27.5 pg (27.0-32.0); MCHC 33.4 g/dL (32.0-37.0); MCV 82.4 fL (80.0-97.0); Mean Platelet Volume 9.9 fL (9.5-12.2); NRBC Per 100 WBC 0 /100 WBCS (0.0-0.0); Platelet Count 216 X 10*3/uL (140-440); RBC 5.23 X 10*6/uL (4.40-5.60); RDW 13.2 % (11.5-14.5); WBC 6.36 X 10*3/uL (4.50-10.00)
[2022-10-16 15:18] LABS: ALT 44 U/L (10-49); AST 35 U/L (14-35); African American GFR (CKD) 86.9 (60.0-200.0); Albumin 4.5 g/dL (3.8-4.9); Albumin/Globulin Ratio 2.34 (1.60-3.17); Alkaline Phosphatase 93 U/L (41-126); BUN/Creat Ratio 12.97 Ratio (12.00-20.00); Bilirubin, Conjugated <0.20 mg/dL (0.20-0.40); Blood Urea Nitrogen 13.1 mg/dL (9.0-27.0); Calcium 9.4 mg/dL (8.7-10.3); Carbon Dioxide 26.9 mmol/L (20.0-27.5); Chloride 106 mmol/L (96-109); Chol/HDL Ratio 3.77 Ratio; Globulin 1.9 g/dL (1.6-3.3); Glucose 91 mg/dL (70-110); LDL Cholesterol,Calculated 86.1 mg/dL (0.0-131.0); Potassium 4.2 mmol/L (3.5-5.5); Sodium 144 mmol/L (135-145); Total Protein 6.4 g/dL (6.2-8.2)
== END | disposition home or self-care (01) ==
LOC: LABWHC1 09:19
PROVIDERS: ATTEND Internal Medicine
DX: Z13.9 Encounter for screening, unspecified (principal)
CPT/HCPCS: 36415; 80048; 80061; 80076; 84439; 84443; 84481; 85027

== ENCOUNTER → 2023-10-08 | Outpatient (CLI) | payer OTHER ==
[2023-10-08 15:38] LABS: HCT 43.2 % (39.6-50.0); HGB 14.2 g/dL (13.0-17.0); MCHC 32.9 g/dL (32.0-37.0); MCV 82.1 FL (80.0-97.0); Mean Platelet Volume 9.7 FL (9.5-12.2); NRBC Per 100 WBC 0 X 10*3/uL (0.00-0.01); Platelet Count 256 X 10*3/uL (140-440); RBC 5.26 X 10*6/uL (4.40-5.60); RDW 13.1 % (11.5-14.5); WBC 6.41 X 10*3/uL (4.50-10.00)
[2023-10-08 16:00] LABS: Blood Urea Nitrogen 10.2 mg/dL (9.0-27.0); Chol/HDL Ratio 3.64 Ratio; Glucose 89 mg/dL (70-110); LDL Cholesterol,Calculated 53.1 mg/dL (0.0-131.0)
[2023-10-08 16:01] LABS: ALT 39 U/L (10-49); AST 39 U/L (14-35); Albumin 4.5 g/dL (3.8-4.9); Albumin/Globulin Ratio 2.37 Ratio (1.60-3.17); Alkaline Phosphatase 90 U/L (41-126); Bilirubin, Conjugated 0.26 mg/dL (0.20-0.40); Bilirubin,Unconjugated 0.74 mg/dL (0.20-1.00); Calcium 9.4 mg/dL (8.7-10.3); Carbon Dioxide 25.8 mmol/L (21.6-31.8); Chloride 100 mmol/L (96-109); Globulin 1.9 g/dL (1.6-3.3); Sodium 136 mmol/L (135-145); Total Protein 6.4 g/dL (6.2-8.2)
== END | disposition home or self-care (01) ==
LOC: LABWHC1 08:31
PROVIDERS: ATTEND Internal Medicine
DX: Z13.9 Encounter for screening, unspecified (principal)
CPT/HCPCS: 36415; 80048; 80061; 80076; 84443; 85027